=== PATIENT | female | born 1945 | race Caucasian/White ===

== ENCOUNTER → 2020-03-29 12:54 | Outpatient (BNVA) | payer MEDICARE, SELFPAY | PROVIDERS: PCP Internal Medicine; Visit Provider Surgery Vascular Surgery | DX: I83.12 Varicose veins of left lower extremity with inflammation (principal) | CPT/HCPCS: 99212 ==

== ENCOUNTER 2020-03-31 07:55 | Outpatient (REF) | payer MEDICARE, SELFPAY ==
--- NOTE | 2020-03-31 07:58 | US_ITS ---
EXAMINATION: RIGHT and LEFT LOWER EXTREMITY VENOUS ULTRASOUND (Reflux Exam) CLINICAL INDICATION: leg pain and varicose veins. COMPARISON: Previous exam August 2018 and September 2018 TECHNIQUE: Color flow triplex imaging and compression Doppler was performed to evaluate both the deep and the superficial systems bilaterally. To evaluate the superficial system, the examination was performed in the upright position. Color-flow Doppler ultrasound and compression ultrasound were utilized. In addition, maneuvers were utilized to demonstrate reflux. FINDINGS: 1. DEEP VENOUS ULTRASOUND OF THE RIGHT LOWER EXTREMITY: Respiratory variation, normal compression and augmented flow are noted in the right common femoral vein as well as the right popliteal vein and there is no evidence of deep venous thrombosis at these locations. There is no evidence of reflux in the deep system in either the common femoral vein or the popliteal vein. There is no evidence of a Mcdaniels's cyst. 2. SUPERFICIAL ULTRASOUND WITH DOPPLER OF RIGHT LOWER EXTREMITY: The right great saphenous vein at the saphenofemoral junction measures 12 mm, at the mid thigh 4 mm, qbmpu-kyc-prbi . mm, hlfzs-hex-hqvy 5 mm, at mid calf 2 mm and at the ankle measures 1 mm. There is no reflux demonstrated in the right great saphenous vein. The right small saphenous vein measures 3-4 mm and demonstrates 2.9 cm reflux at the distal calf.. There is a lateral accessory greater saphenous vein that measures 3 to 4 mm and does not demonstrate reflux. There are varicosities in the proximal calf that measures 3 mm and demonstrates 3 seconds reflux. There is a varicosity in the proximal calf that measures 4 mm and does not demonstrate reflux. 3. DEEP VENOUS ULTRASOUND OF THE LEFT LOWER EXTREMITY: Respiratory variation, normal compression and augmented flow are noted in the left common femoral vein as well as the left popliteal vein and there is no evidence of deep venous thrombosis at these locations. There is no evidence of reflux in the deep system in either the common femoral vein or the popliteal vein. . There is no evidence of a Mcdaniels's cyst. 4. SUPERFICIAL ULTRASOUND WITH DOPPLER OF LEFT LOWER EXTREMITY: Left great saphenous vein at the saphenofemoral junction measures 11 mm, at the mid thigh not seen, yctez-jhj-zdkm mm, ivleo-noj-azmy 3 mm, at mid calf 5 mm and at the ankle measures 4 mm. There is left greater saphenous vein reflux measuring 0.9 seconds at the saphenofemoral junction, 1 seconds above the knee, 2.4 seconds below the knee and 2.6 seconds in the mid calf. The left small saphenous vein measures 2-5 mm and and demonstrates 2.5 second reflux in the mid calf. There is a medial accessory greater saphenous vein that measures 7 mm and does not demonstrate reflux. There is a impregnating helper in the distal calf that measures 2 mm and does not demonstrate reflux. There is a impregnating helper in the proximal calf that measures 2 mm and demonstrates 2.9 seconds reflux. There are 2 varicosities in the mid calf arising from the lesser saphenous vein that measure 5 mm and demonstrates 3 seconds reflux and 4 mm and demonstrates 2.9 seconds reflux . There are 2 varicosities in the proximal thigh that measures 6 mm and demonstrate 2.4 and 2.5 seconds reflux and arise from the accessory saphenous vein. US/US venous duplex LE BI IMPRESSION: 1. No evidence of reflux or thrombus in the common femoral veins or popliteal veins bilaterally. 2. Right: No right greater saphenous vein reflux. 2.9 seconds reflux in the right lesser saphenous vein. Small varicosities in the calf that demonstrate reflux. 3. Left: Left greater saphenous vein reflux measuring maximum 2.6 seconds. Left lesser saphenous vein reflux measuring 2.5 seconds. Varicosities with reflux in the calf that arise from the lesser saphenous vein. Varicosities with reflux in the proximal thigh that arise from the accessory greater saphenous vein. Researcher in the calf with reflux.
== END 2020-03-31 07:56 | disposition home or self-care (01) ==
LOC: HO.US 07:55
PROVIDERS: Visit Provider Surgery Vascular Surgery
DX: I83.12 Varicose veins of left lower extremity with inflammation (principal)
CPT/HCPCS: 93970

== ENCOUNTER → 2020-04-20 10:59 | Outpatient (BNVA) | payer MEDICARE, SELFPAY | PROVIDERS: PCP Internal Medicine; Visit Provider Surgery Vascular Surgery | DX: I83.12 Varicose veins of left lower extremity with inflammation (principal) | CPT/HCPCS: 99212 ==

== ENCOUNTER → 2020-05-21 09:47 | Outpatient (REF) | payer MEDICARE, SELFPAY ==
--- NOTE | 2020-05-21 10:00 | ECG_ITS ---
Hook-up date: 2020-05-21 10:42:00 Duration: 47:59:00 Test Indications: PAF Medications: 07073 QRS complexes 1141 Ventricular ectopics which represent 1 % of total QRS comp. 1498 Supraventricular ectopics which represent 1 % of total QRS comp. * Paced QRS complexs which represent % of total QRS comp. VENTRICULAR ECTOPY 1117 Isolated 0 Bigeminal Cycles 10 Couplets 1 Runs 4 Beats in Runs 4 Beats LONGEST at 91 BPM at 18:56:03 2020-05-21 4 Beats FASTEST at 91 BPM at 18:56:03 2020-05-21 SUPRAVENTRICULAR ECTOPY 1347 Isolated 28 Couplets 16 Runs 95 Beats in Runs 14 Beats LONGEST at 103 BPM at 22:07:38 2020-05-21 3 Beats FASTEST at 159 BPM at 08:06:21 2020-05-22 HEART RATES 59 MIN at 20:04:26 2020-05-21 69 AVG 112 MAX at 06:15:53 2020-05-22 LONGEST RR 1.3520 secs at 22:28:11 2020-05-21 S-T LEVELS Channel 1 - 128 mm at 10:42:00 2020-05-21 - 128 mm at 10:42:00 2020-05-21 Channel 2 - 128 mm at 10:42:00 2020-05-21 - 128 mm at 10:42:00 2020-05-21 Channel 3 - 128 mm at 03:00:11 -- - 128 mm at 03:00:11 Basic rhythm Normal sinus rhythm No long pause or profound bradycardia Baseline BBB No sustained Atrial fibrillation Frequent Premature atrial complexes Frequent Premature ventricular complexes Few 3 beats salvos of NSVT Patient did not report any symptoms in the diary Referred By: Chandler Hurt Overread By: MICHAEL MAC MD
== END ==
LOC: HO.CARD 09:47
PROVIDERS: PCP Internal Medicine; Visit Provider Internal Medicine
DX: I48.0 Paroxysmal atrial fibrillation (principal)
CPT/HCPCS: 93225; 93226

== ENCOUNTER → 2020-06-10 12:53 | Outpatient (BNVA) | payer MEDICARE, SELFPAY | PROVIDERS: PCP Internal Medicine; Visit Provider Internal Medicine | DX: I48.0 Paroxysmal atrial fibrillation (principal); I49.3 Ventricular premature depolarization; I10 Essential (primary) hypertension; R21 Rash and other nonspecific skin eruption; Z79.01 Long term (current) use of anticoagulants; Z79.899 Other long term (current) drug therapy | CPT/HCPCS: Q3014 ==

== ENCOUNTER 2020-07-08 12:26 | Outpatient (REF) | payer MEDICARE, SELFPAY ==
[2020-07-08 13:58] LABS: Glucose Urine UA NEG (NEG); Leukocyte Esterase Urine 1+ (NEG); Nitrite Urine POS (NEG); PH 6.5 (5.0-8.0); Urine Blood TRACE (NEG); Urine Ketones NEG (NEG); Urine Protein NEG (NEG-TRACE)
[2020-07-08 13:59] LABS: Appearance Urine HAZY; Color Urine YELLOW
[2020-07-08 14:00] LABS: Hematocrit 45.4 % (37-47); Hemoglobin 14.6 g/dl (12.0-16.0); Mean Corpuscular HGB Conc 32.2 g/dl (31.0-35.0); Mean Corpuscular Hemoglobin 29.8 pg (27.0-33.0); Mean Corpuscular Volume 92.7 fL (80-98); Mean Platelet Volume 11.5 fL (9.4-12.3); Platelet Count 238 X10*3/uL (160-400); Red Cell Distribution Width 13.2 % (11.0-16.0); White Blood Count 6.5 X10*3/uL (4.8-10.8)
[2020-07-08 14:14] LABS: Bacteria Urine 4+ /LPF; RBC Urine 0-2 /HPF (0); Squamous Epithelial Cell Urine 1+ /LPF
[2020-07-08 14:24] LABS: Alanine Aminotransferase 16 U/L (0-31); Albumin Level 4.3 g/dL (3.5-5.0); Alkaline Phosphatase 106 U/L (39-117); Anion Gap 13 (12-20); Aspartate Amino Transferase 19 U/L (5-31); Bilirubin Total 0.7 mg/dL (0.0-1.0); Blood Urea Nitrogen 16 mg/dL (9-16); Carbon Dioxide 28 mmol/L (22-29); Chloride 104 mmol/L (96-108); Cholesterol 179 mg/dL; Estimated Glomerular Filt Rate > 60; Glucose Fasting 97 mg/dL (60-99); HDL Cholesterol 42 mg/dL; LDL Cholesterol Calculated 106 mg/dl; Potassium 4.3 mmol/L (3.3-5.1); Sodium 141 mmol/L (135-145); Total Protein 7.4 g/dL (6.5-8.0); Triglycerides 157 mg/dL
[2020-07-08 14:47] LABS: TSH reflex Free T4 1.86 uIU/mL (0.32-4.0); Vitamin D 25-OH Total 44.9 ng/mL (>30)
== END 2020-07-08 12:27 | disposition home or self-care (01) ==
LOC: HO.HMGCLDS 12:26
PROVIDERS: PCP Internal Medicine; Visit Provider Internal Medicine
DX: I48.0 Paroxysmal atrial fibrillation (principal); I10 Essential (primary) hypertension; I49.3 Ventricular premature depolarization; E03.9 Hypothyroidism, unspecified
CPT/HCPCS: 36415; 80053; 80061; 81001; 82306; 84443; 85027

== ENCOUNTER 2020-07-12 13:09 | Outpatient (REF) | payer MEDICARE, SELFPAY ==
[2020-07-12 14:14] LABS: Glucose Urine UA NEG (NEG); Leukocyte Esterase Urine 1+ (NEG); Nitrite Urine POS (NEG); UACC Culture Trigger YES; Urine Blood TRACE (NEG); Urine Ketones NEG (NEG); Urine Protein NEG (NEG-TRACE)
[2020-07-12 14:16] LABS: Appearance Urine HAZY; Color Urine YELLOW
[2020-07-12 14:25] LABS: RBC Urine 0 /HPF (0); Squamous Epithelial Cell Urine TRACE /LPF
[2020-07-12 14:26] LABS: Bacteria Urine 2+ /LPF; Mucus Urine TRACE /LPF
== END 2020-07-12 13:10 | disposition home or self-care (01) ==
LOC: HO.HMGCLDS 13:09
PROVIDERS: PCP Internal Medicine; Visit Provider Internal Medicine
DX: R82.71 Bacteriuria (principal); I48.0 Paroxysmal atrial fibrillation; I10 Essential (primary) hypertension; I49.3 Ventricular premature depolarization; E03.9 Hypothyroidism, unspecified
CPT/HCPCS: 81001; 81003; 87086; 87088; 87186

== ENCOUNTER 2020-07-29 13:20 | Outpatient (REF) | payer MEDICARE, SELFPAY ==
--- NOTE | ~2020-07-29 | MM_ITS ---
EXAMINATION: MM SCREENING DIGITAL BREAST TOMOSYNTHESIS, BILATERAL CLINICAL INFORMATION: Screening. Asymptomatic. The lifetime risk of breast cancer based on the Tyrer-Cuzick Model is 5.2%. COMPARISON: Mammography: July 24, 2019 and studies dating back to March 12, 2012 TECHNIQUE: Digital breast tomosynthesis is performed in both the craniocaudal and mediolateral oblique views along with computer-aided detection (CAD). Synthesized 2D images are generated from the tomosynthesis. FINDINGS: There are scattered areas of fibroglandular density (ACR BI-RADS breast composition Category b). There are no significant masses, abnormal calcifications, or other abnormalities. MM/MM tomosynthesis screening BI IMPRESSION: There are no significant changes from prior study. ASSESSMENT: BI-RADS 1: Negative RECOMMENDATION: Routine annual mammography screening. This patient's information was entered into a reminder system with a target due date for their next mammogram.
== END 2020-07-29 13:21 | disposition home or self-care (01) ==
LOC: HO.MAMMO 13:20
PROVIDERS: PCP Internal Medicine; Visit Provider Internal Medicine
DX: Z12.31 Encounter for screening mammogram for malignant neoplasm of breast (principal)
CPT/HCPCS: 77063; 77067

== ENCOUNTER → 2020-12-21 09:34 | Outpatient (BNVA) | payer MEDICARE, SELFPAY | PROVIDERS: PCP Internal Medicine; Visit Provider Orthopaedic Surgery | DX: M17.11 Unilateral primary osteoarthritis, right knee (principal) | CPT/HCPCS: 20610; 99212; J1040 ==

== ENCOUNTER 2020-12-24 11:36 | Outpatient (REF) | payer MEDICARE, SELFPAY | END 2020-12-24 11:37 | disposition home or self-care (01) | LOC: HO.LAB 11:36 | PROVIDERS: PCP Internal Medicine; Visit Provider Internal Medicine | DX: Z20.822 Contact with and (suspected) exposure to COVID-19 (principal) | CPT/HCPCS: C9803; U0003; U0005 ==

== ENCOUNTER 2021-04-12 07:00 | Outpatient (RCR) | payer MEDICARE, SELFPAY ==
--- NOTE | 2021-04-07 15:09 | MHC.PT.EP ---
[facility] [place] [facility] [place] [facility] [place] [facility] [address] [place] [address] [phone] F: [phone] F: [phone] F: [phone] F: [phone] Physical Therapy Plan of Care Date of Evaluation: Date of Surgery: Diagnosis: vertigo Assessment: The patient has dizziness with change of position as well as left head and body movement. She had reports of vertigo and atypical nystagmus in right hallpike. Slight upbeating torsional low amplitude nystagmus noted that improved upon completion of CRM. She will return for f/u for BPPV. She is also showing signs of vestibular hypofunction. Frequency and Duration: The patient will be seen 2x/week x 4 weeks. Short Term Goals: 1. The patient to be able to negotiate community obstacles such as curbs, ramps and open spaces without LOB for 100 feet. 2. For the patient to be able to functionally move in all planes and directions without provocation of dizziness to show return to PLOF. Wire Welder Goals: 1. For the patient to be negative for nystagmus or reports of vertigo in all diagnostic positions bilaterally to resolution of BPPV in 4 weeks. 2. For the patient to be able to functionally move in all planes and directions without provocation of dizziness to show return to PLOF. 3.For the patient to be educated on symptoms and indications to return to therapy when needed in 4 weeks. Treatment Plan: Modalities to reduce pain, spasms and effusion. Manual therapy to restore motion and function. Therapeutic exercise to improve strength and flexibility. Neuromuscular re-education for posture and balance. Therapeutic activities to return to functional activities of daily living. Electronically signed by: Florinda Davis PT DPT Please sign and return to therapist. Thank you for your referral.
== END 2021-05-06 08:00 | disposition home or self-care (01) ==
LOC: HO.PT 07:00
PROVIDERS: PCP Internal Medicine; Visit Provider Nurse Practitioner Family
DX: R42 Dizziness and giddiness (principal)
CPT/HCPCS: 95992; 97112; 97162

== ENCOUNTER → 2021-06-09 12:16 | Outpatient (BNVA) | payer MEDICARE, SELFPAY | PROVIDERS: PCP Internal Medicine; Referring Provider Internal Medicine; Visit Provider Internal Medicine | DX: I48.0 Paroxysmal atrial fibrillation (principal); I49.3 Ventricular premature depolarization; I10 Essential (primary) hypertension; R21 Rash and other nonspecific skin eruption; Z79.01 Long term (current) use of anticoagulants; Z79.899 Other long term (current) drug therapy | CPT/HCPCS: 93005; 99212 ==

== ENCOUNTER 2021-07-11 11:57 | Outpatient (REF) | payer MEDICARE, SELFPAY ==
[2021-07-11 14:00] LABS: Hematocrit 46.2 % (37.0-47.0); Hemoglobin 14.8 g/dl (12.0-16.0); Mean Corpuscular Hemoglobin 29.8 pg (27.0-33.0); Mean Corpuscular Volume 93.1 fL (80.0-98.0); Mean Platelet Volume 11.9 fL (9.4-12.3); Platelet Count 237 X10*3/uL (160-400); Red Blood Count 4.96 X10*6/uL (4.20-5.50); Red Cell Distribution Width 13.4 % (11.0-16.0); White Blood Count 6.6 X10*3/uL (4.8-10.8)
[2021-07-11 14:03] LABS: Appearance Urine CLEAR; Color Urine YELLOW; Glucose Urine UA NEG (NEG); Leukocyte Esterase Urine NEG (NEG); Nitrite Urine NEG (NEG); Specific Gravity - Urine 1.015 (1.005-1.025); Urine Blood NEG (NEG); Urine Ketones 5 MG/DL (NEG); Urine Protein NEG (NEG-TRACE)
[2021-07-11 14:17] LABS: Alanine Aminotransferase 18 U/L (0-31); Albumin Level 4.2 g/dL (3.5-5.0); Alkaline Phosphatase 96 U/L (39-117); Anion Gap 12 (12-20); Aspartate Amino Transferase 20 U/L (5-31); Bilirubin Total 0.7 mg/dL (0.0-1.0); Blood Urea Nitrogen 15 mg/dL (9-16); Carbon Dioxide 27 mmol/L (22-29); Chloride 106 mmol/L (96-108); Cholesterol 176 mg/dL; Estimated Glomerular Filt Rate > 60; Glucose Fasting 98 mg/dL (60-99); HDL Cholesterol 44 mg/dL; LDL Cholesterol Calculated 107 mg/dl; Sodium 141 mmol/L (135-145); Total Protein 7.1 g/dL (6.5-8.0); Triglycerides 129 mg/dL
[2021-07-11 14:24] LABS: RBC Urine 0 /HPF (0); Squamous Epithelial Cell Urine TRACE /LPF; WBC Urine 0-2 /HPF (0-4)
[2021-07-11 14:30] LABS: TSH reflex Free T4 1.54 uIU/mL (0.32-4.0)
== END 2021-07-11 11:58 | disposition home or self-care (01) ==
LOC: HO.HMGCLDS 11:57
PROVIDERS: Visit Provider Internal Medicine
DX: Z00.00 Encounter for general adult medical examination without abnormal findings (principal); I48.0 Paroxysmal atrial fibrillation; I10 Essential (primary) hypertension
CPT/HCPCS: 36415; 80053; 80061; 81001; 84443; 85027

== ENCOUNTER 2021-08-02 10:15 | Outpatient (REF) | payer MEDICARE, SELFPAY ==
--- NOTE | ~2021-08-02 | MM_ITS ---
EXAMINATION: MM SCREENING DIGITAL BREAST TOMOSYNTHESIS, BILATERAL CLINICAL INFORMATION: Screening. Asymptomatic. The lifetime risk of breast cancer based on the Tyrer-Cuzick Model is 3%. COMPARISON: Mammography: 07/29/2020, 07/24/2019, 07/16/2018 TECHNIQUE: Digital breast tomosynthesis is performed in both the craniocaudal and mediolateral oblique views along with computer-aided detection (CAD). Synthesized 2D images are generated from the tomosynthesis. FINDINGS: There are scattered areas of fibroglandular density (ACR BI-RADS breast composition Category b). There are no significant masses, abnormal calcifications, or other abnormalities. Parenchymal pattern is similar to prior studies. There is no developing density or architectural abnormality. The axilla and skin contours are unremarkable. No significant changes. MM/MM tomosynthesis screening BI IMPRESSION: No mammographic evidence of malignancy. ASSESSMENT: BI-RADS 1: Negative RECOMMENDATION: Routine annual mammography screening. This patient's information was entered into a reminder system with a target due date for their next mammogram.
== END 2021-08-02 10:16 | disposition home or self-care (01) ==
LOC: HO.MAMMO 10:15
PROVIDERS: PCP Internal Medicine; Visit Provider Internal Medicine
DX: Z12.31 Encounter for screening mammogram for malignant neoplasm of breast (principal)
CPT/HCPCS: 77063; 77067

== ENCOUNTER → 2022-06-12 11:01 | Outpatient (BNVA) | payer MEDICARE, SELFPAY | PROVIDERS: PCP Internal Medicine; Referring Provider Internal Medicine; Visit Provider Internal Medicine | DX: I48.0 Paroxysmal atrial fibrillation (principal); I10 Essential (primary) hypertension; Z79.01 Long term (current) use of anticoagulants; Z79.899 Other long term (current) drug therapy | CPT/HCPCS: 93005; 99212 ==

== ENCOUNTER 2022-07-18 09:34 | Outpatient (REF) | payer MEDICARE, SELFPAY ==
[2022-07-18 11:08] LABS: MANUAL DIFF FLAG NO
[2022-07-18 11:10] LABS: Basophils Percent Auto 0.7 % (0-2); Eosinophils Absolute Auto 0.1 X10*3/uL (0.0-0.4); Hematocrit 45.9 % (37.0-47.0); Hemoglobin 14.9 g/dl (12.0-16.0); Imm Gran Abs Auto 0.03 X10*3/uL (0.00-0.03); Imm Gran Pct Auto 0.5 % (0.0-0.4); Lymphocytes Absolute Auto 1.5 X10*3/uL (1.2-4.9); Lymphocytes Percent Auto 24.3 % (20-40); Mean Corpuscular HGB Conc 32.5 g/dl (31.0-35.0); Mean Corpuscular Hemoglobin 29.7 pg (27.0-33.0); Mean Corpuscular Volume 91.4 fL (80.0-98.0); Mean Platelet Volume 11.4 fL (9.4-12.3); Monocytes Absolute Auto 0.6 X10*3/uL (0.1-1.2); Monocytes Percent Auto 10.5 % (2-11); Neutrophils Absolute Auto 3.9 x10*3/uL (2.0-8.3); Platelet Count 244 X10*3/uL (160-400); Red Blood Count 5.02 X10*6/uL (4.20-5.50); Red Cell Distribution Width 13.4 % (11.0-16.0); White Blood Count 6.1 X10*3/uL (4.8-10.8)
[2022-07-18 11:30] LABS: Alanine Aminotransferase 17 U/L (0-31); Albumin Level 4.3 g/dL (3.5-5.0); Alkaline Phosphatase 92 U/L (39-117); Anion Gap 13 (12-20); Aspartate Amino Transferase 19 U/L (5-31); Bilirubin Total 0.9 mg/dL (0.0-1.0); Blood Urea Nitrogen 16 mg/dL (9-16); Calcium 9.7 mg/dL (8.4-10.2); Carbon Dioxide 29 mmol/L (22-29); Chloride 105 mmol/L (96-108); Cholesterol 177 mg/dL; Estimated Glomerular Filt Rate > 60; Glucose Fasting 113 mg/dL (60-99); HDL Cholesterol 44 mg/dL; LDL Cholesterol Calculated 111 mg/dl; Potassium 4.3 mmol/L (3.3-5.1); Sodium 143 mmol/L (135-145); Triglycerides 112 mg/dL
[2022-07-18 11:46] LABS: TSH reflex Free T4 1.95 uIU/mL (0.32-4.0)
[2022-07-18 12:11] LABS: Vitamin D 25-OH Total 53.1 ng/mL (>30)
== END 2022-07-18 09:35 | disposition home or self-care (01) ==
LOC: HO.HMGCLDS 09:34
PROVIDERS: PCP Internal Medicine; Visit Provider Internal Medicine
DX: Z00.00 Encounter for general adult medical examination without abnormal findings (principal); E55.9 Vitamin D deficiency, unspecified; I10 Essential (primary) hypertension; I48.0 Paroxysmal atrial fibrillation; Z78.0 Asymptomatic menopausal state
CPT/HCPCS: 36415; 80053; 80061; 82306; 84443; 85025

== ENCOUNTER 2022-08-15 09:42 | Outpatient (REF) | payer MEDICARE, SELFPAY ==
--- NOTE | ~2022-08-15 | MM_ITS ---
EXAMINATION: MM SCREENING DIGITAL BREAST TOMOSYNTHESIS, BILATERAL CLINICAL INFORMATION: Screening. Asymptomatic. The lifetime risk of breast cancer based on the Tyrer-Cuzick Model is 2%. COMPARISON: Mammography: 08/02/2021, 07/29/2020, 07/24/2019 TECHNIQUE: Digital breast tomosynthesis is performed in both the craniocaudal and mediolateral oblique views along with computer-aided detection (CAD). Synthesized 2D images are generated from the tomosynthesis. FINDINGS: There are scattered areas of fibroglandular density (ACR BI-RADS breast composition Category b). There are no significant masses, abnormal calcifications, or other abnormalities. No architectural abnormality or developing density or significant change from prior studies. The axilla and skin contours are unremarkable. MM/MM tomosynthesis screening BI IMPRESSION: No mammographic evidence of malignancy. ASSESSMENT: BI-RADS 1: Negative RECOMMENDATION: Routine annual mammography screening. This patient's information was entered into a reminder system with a target due date for their next mammogram.
--- NOTE | ~2022-08-15 | MM_ITS ---
EXAMINATION: BONE DENSITOMETRY CLINICAL INDICATION: Encounter for general adult medical examination without abnormal findings. COMPARISON: Baseline BD dated 05/22/2018. TECHNIQUE: Using a [employer] DXA System (software version: 13.1) manufactured by [employer], dual-energy x-ray absorptiometry was performed of the lumbar spine and left hip. The images are of good technical quality. Summary results are attached. FINDINGS: AP SPINE L1-L4: Current: BMD 1.233 g/cm2, Z-score 2.0, T-score 0.4, normal, 1.1% increase from baseline (<5% change is not significant). Baseline: BMD 1.219 g/cm2. LEFT FEMUR, NECK: Current: BMD 0.714 g/cm2, Z-score -0.4, T-score -2.3, osteopenia. Baseline: BMD 0.748 g/cm2. LEFT FEMUR, TOTAL: Current: BMD 0.816 g/cm2, Z-score 0.2, T-score -1.5, osteopenia, 8.8% decrease from baseline (<5% change is not significant). Baseline: BMD 0.895 g/cm2. IDENTIFIED RISK FACTORS: Early menopause, secondary osteoporosis, rheumatoid arthritis, height loss, hysterectomy. HISTORY OF FRACTURE: None listed. MEDICATIONS: Calcium supplements or multivitamin, vitamin D. MM/XR DEXA axial skeleton IMPRESSION: 1. DIAGNOSIS: Osteopenia based on the lowest T-score value of -2.3 in the femoral neck applying World Health Organization criteria. 2. 10-YEAR FRACTURE RISK PREDICTION, FRAX: Major osteoporotic fracture (clinical spine, forearm, hip or shoulder) 22.0%. Hip fracture 7.7%. 3. Treatment Recommendations: NOF guidelines recommend consideration for treatment in postmenopausal women and men age 50 and older presenting with the following: -A hip or vertebral (clinical or morphometric) fracture. -T-score less than or equal to -2.5 at the femoral neck or spine after appropriate evaluation to exclude secondary causes. -Low bone mass at the hip or spine and a 10-year fracture probability by FRAX of greater than or equal to 3% for hip fracture or greater than or equal to 20% for major osteoporotic fracture based on the [place] adapted WHO algorithm. 4. Other Recommendations: All treatment decisions require clinical judgment and consideration of individual patient factors, including patient preferences, comorbidities, previous drug use, risk factors not captured in the FRAX model (e.g. frailty, falls, vitamin D deficiency, increased bone turnover, interval significant decline in bone density) and possible under or overestimation of fracture risk by FRAX. Additional medical evaluation for secondary cause of low bone mineral density may be appropriate. FUTURE SCAN RECOMMENDATION: People with diagnosed cases of osteoporosis or at high risk for fracture should have regular bone mineral density tests. For patients eligible for Medicare, routine testing is allowed once every 2 years. The testing frequency can be increased to one year for patients who have rapidly progressing disease, those who are receiving or discontinuing medical therapy to restore bone mass, or have additional risk factors.
== END 2022-08-15 09:43 | disposition home or self-care (01) ==
LOC: HO.MAMMO 09:42
PROVIDERS: PCP Internal Medicine; Visit Provider Internal Medicine
DX: Z12.31 Encounter for screening mammogram for malignant neoplasm of breast (principal); Z13.820 Encounter for screening for osteoporosis; Z78.0 Asymptomatic menopausal state
CPT/HCPCS: 77063; 77067; 77080

== ENCOUNTER → 2022-12-26 13:59 | Outpatient (BNV) | payer MEDICARE, SELFPAY | PROVIDERS: PCP Internal Medicine; Visit Provider Internal Medicine | DX: I47.1 Supraventricular tachycardia (principal) | CPT/HCPCS: 93272 ==

== ENCOUNTER → 2022-12-26 14:09 | Outpatient (REF) | payer MEDICARE, SELFPAY ==
--- NOTE | 2022-12-26 13:59 | HM_ITS ---
* Total monitoring time about 30 days. * Underlying rhythm is sinus. Average ventricular rate 57/Min. Range 40 to 120/Min. * About 78% of the time, rate less than 60/Min. * Occasional supraventricular ectopy with a burden of 1.5%. * Occasional ventricular ectopy with a burden of 1.8%. * No evidence of atrial fibrillation. * There is evidence of intermittent right bundle-branch block morphology. * Symptom button activated 55 times; symptom reported once-tiredness. Correlates with PACs from a PVCs, sinus bradycardia. MTDD
== END ==
LOC: HO.CARD 14:09
PROVIDERS: PCP Internal Medicine; Visit Provider Nurse Practitioner
DX: I48.0 Paroxysmal atrial fibrillation (principal)
CPT/HCPCS: 93270

== ENCOUNTER 2023-02-08 14:24 | Outpatient (AMB) | payer MEDICARE, SELFPAY ==
--- NOTE | 2023-02-08 14:46 | MHC.OFFVIS ---
Intake Vital Signs 02/08/23 14:47 Height 5 ft 4 in Weight 147 lb 11.355 oz BMI 25.4 BP 158/80 H Blood Pressure Location Lt brachial Position Sitting Pulse 52 Intake Visit Reasons: FOLLOW UP AFTER TESTING Intake Note: follow up testing Dye Tub Tender Required: No Accompanied by: Self / Same As Patient Allergies omeprazole [From PRILOSEC] Allergy (Unknown, Verified 02/08/23 14:48) NAUSEA quinidine [QUINIDINE] Allergy (Unknown, Verified 02/08/23 14:48) NAUSEA Medication List - Last Reconciled 02/08/23 by Chandler Hurt MD apixaban (Eliquis) 5 mg PO BID atenolol 100 mg PO DAILY loapudw-hlbnadeqf-zxxdjs-zinc tabs PO cholecalciferol (vitamin D3) 25 mcg PO DAILY irbesartan-hydrochlorothiazide 300-12.5 mg 1 tab PO DAILY levothyroxine 50 mcg PO DAILY HPI HPI Comments History of Present Illness Details Lola returns for follow up regarding atrial fibrillation and hypertension. In the past, she was having side effects from very high dose of beta-blockers. Was having some skin issues. Then switched to diltiazem. There were some side effects from this as well and more recently, she has been taking atenolol. She still feels some fluttering off and on. However, in the recent 30 day monitor there is no evidence of atrial fibrillation at all. Could be just from supraventricular ventricular ectopy. Otherwise, she is feeling fine. Today's blood pressure is on the higher side but at home, those readings are much lower. [facility] Medical History (Updated 07/18/22 @ 09:23 by Nany Antonio MD) Asymptomatic bacteriuria Annual physical exam Skin rash Essential hypertension Paroxysmal atrial fibrillation Internal hemorrhoid Tubular adenoma Hypothyroidism HTN (hypertension) Surgical History Hx of arthroscopic knee surgery Status post endovenous radiofrequency ablation (RFA) of saphenous vein History of radiofrequency ablation (RFA) procedure for cardiac arrhythmia Family History Mother No problems noted. Father No problems noted. Daughter No problems noted. Son No problems noted. Son No problems noted. Social History Housing: House Alcohol intake: never Patient Tobacco Use Status: Never used Tobacco e-Cigarette/Vaping Use: Never Used Current occupational status: retired Review of Systems Const Denies weakness ENT Denies dizziness Card Denies chest pain, Denies chest pain with activity, Denies syncope, Denies rapid heart rate, Denies pedal edema, Denies edema, Denies leg edema, Denies lightheadedness, Denies palpitations, Denies dyspnea, Denies dyspnea on exertion and Denies orthopnea Resp Denies cough, Denies dyspnea and Denies dyspnea on exertion GI Denies hematochezia and Denies change in stool character Musc Denies abnormal gait, Denies muscle cramps, Denies muscle weakness, Denies numbness, Denies radiating pain into limb and Denies tingling Neuro Denies abnormal gait, Denies dizziness, Denies syncope, Denies numbness, Denies tingling and Denies weakness Endo Denies palpitations Physical Exam Vital Signs: Last Vital Signs Pulse 52 02/08/23 14:47 BP 158/80 H 02/08/23 14:47 BMI result Body Mass Index 25.4 Const General: comfortable and no acute distress Orientation/consciousness: patient oriented x3 HEENT Other: Unremarkable Head: Yes normal to inspection Neck Neck: Yes normal visual inspection Chest Chest palpation & inspection: normal inspection of the chest Resp Auscultation: clear to auscultation bilaterally Cardio Palpation: normal PMI Heart sounds: S1 normal heart sound present, S2 normal heart sound present, no gallops, no murmurs and no rubs GI Palpation (GI): Soft to palpation Back/Spine/Pelvis Other: unremarkable Skin General skin exam: no rashes or lesions noted Neuro General: patient oriented x3 Extrem General: Yes normal to inspection Psych Mental Status: mental status grossly normal Assessment & Plan Assessment & Plan (1) Paroxysmal atrial fibrillation: Comment: s/p 3 ablations, f/u with [facility] [place] [facility] Code(s): I48.0 - Paroxysmal atrial fibrillation Plan: In the recent 30 day monitor, there is no evidence of atrial fibrillation. Occasional supraventricular/ventricular ectopy with intermittent right bundle-branch block. She may remain on atenolol. No further changes. Continue anticoagulation. (2) Essential hypertension: Code(s): I10 - Essential (primary) hypertension Plan: Continue Irbesartan/HCTZ. Home blood pressures are completely normal. Renal function/potassium within normal limits. Coding Level of Care Code Est Pt Level 3 (61210) Diagnoses Paroxysmal atrial fibrillation I48.0 Essential hypertension I10
[2023-02-08 14:47] VITALS: BP 158/80; PULSE 52; BMI 25.4
== END 2023-02-08 15:14 | disposition home or self-care (01) ==
PROVIDERS: PCP Internal Medicine; Visit Provider Internal Medicine
DX: I48.0 Paroxysmal atrial fibrillation (principal); I10 Essential (primary) hypertension
CPT/HCPCS: 99213

== ENCOUNTER → 2023-02-08 14:24 | Outpatient (BNVA) | payer MEDICARE, SELFPAY | PROVIDERS: PCP Internal Medicine; Visit Provider Internal Medicine | DX: I48.0 Paroxysmal atrial fibrillation (principal); I10 Essential (primary) hypertension; Z79.01 Long term (current) use of anticoagulants; Z79.899 Other long term (current) drug therapy | CPT/HCPCS: 99212 ==

== ENCOUNTER 2023-06-20 06:26 | Day surgery (SDC) | payer MEDICARE, SELFPAY ==
[2023-03-15 13:57] VITALS: BMI 25.4
--- NOTE | 2023-06-19 08:27 | P.CONAN_ITS ---
Documented by User: Holli Caraballo NP 06/19/23 08:28 HPI - Anesthesia Eval Consult details Narrative: 77yo F for Colonoscopy Eliquis for afib Follows [facility] [place] cardiology. Stable at last office visit 02/2023 [facility] Active Problems Active Problems: All Active Problems (Updated 07/18/22 @ 09:23 by Nany Antonio MD) Postmenopausal (Acute) Vitamin D deficiency (Acute) Vertigo (Acute) Primary osteoarthritis of right knee (Acute) PVC (premature ventricular contraction) (Acute) Varicose veins of left lower extremity with inflammation (Acute) Asymptomatic bacteriuria (Acute) Annual physical exam (Acute) Skin rash (Acute) Essential hypertension (Acute) Paroxysmal atrial fibrillation (Acute) Past Medical History Medical History (Updated 07/18/22 @ 09:23 by Nany Antonio MD) Asymptomatic bacteriuria Annual physical exam Skin rash Essential hypertension Paroxysmal atrial fibrillation Internal hemorrhoid Tubular adenoma Hypothyroidism HTN (hypertension) Family History Family History Mother No problems noted. Father No problems noted. Daughter No problems noted. Son No problems noted. Son No problems noted. Surgical History Surgical History (Updated 03/15/23 @ 13:48 by Christie Cassidy RN) History of Hx of hysterectomy Hx of appendectomy H/O colonoscopy Hx of arthroscopic knee surgery Status post endovenous radiofrequency ablation (RFA) of saphenous vein History of radiofrequency ablation (RFA) procedure for cardiac arrhythmia Social History Social History Housing: House Alcohol intake: never Patient Tobacco Use Status: Never used Tobacco e-Cigarette/Vaping Use: Never Used Use of substances other than those prescribed or required for medical reasons: No Are you DNR?: No Advance Directives: No Advance Directives Information Provided: Yes Current occupational status: retired Meds Allergies Allergy/AdvReac Type Severity Reaction Status Date / Time omeprazole [From PRILOSEC] Allergy Unknown NAUSEA Verified 02/08/23 14:48 quinidine [QUINIDINE] Allergy Unknown NAUSEA Verified 02/08/23 14:48 Home Medications Medication Instructions Recorded Confirmed Last Taken Type eyafavw-ccjcvfiux-teckre-zinc 1 tab PO DAILY 04/20/20 06/20/23 Unknown History tablet cholecalciferol (vitamin D3) 25 25 mcg PO DAILY 06/12/22 03/15/23 Unknown History mcg (1,000 unit) capsule Exam Height,Weight and Vital Signs: Height 5 ft 4 in Weight 67.132 kg Narrative Narrative: Holter * Total monitoring time about 30 days. * Underlying rhythm is sinus. Average ventricular rate 57/Min. Range 40 to 120/Min. * About 78% of the time, rate less than 60/Min. * Occasional supraventricular ectopy with a burden of 1.5%. * Occasional ventricular ectopy with a burden of 1.8%. * No evidence of atrial fibrillation. * There is evidence of intermittent right bundle-branch block morphology. * Symptom button activated 55 times; symptom reported once-tiredness. Correlates with PACs from a PVCs, sinus bradycardia. Assessment and Plan Assessment Anesthesia Assessment: Chart Reviewed Documented by User: Senthil Vargas MD 06/20/23 07:54 PMFSH Past Medical History Medical History (Updated 07/18/22 @ 09:23 by Nany Antonio MD) Asymptomatic bacteriuria Annual physical exam Skin rash Essential hypertension Paroxysmal atrial fibrillation Internal hemorrhoid Tubular adenoma Hypothyroidism HTN (hypertension) Family History Family History Mother No problems noted. Father No problems noted. Daughter No problems noted. Son No problems noted. Son No problems noted. Family history of problems with anesthesia: No Surgical History Surgical History (Updated 03/15/23 @ 13:48 by Christie Cassidy RN) History of Hx of hysterectomy Hx of appendectomy H/O colonoscopy Hx of arthroscopic knee surgery Status post endovenous radiofrequency ablation (RFA) of saphenous vein History of radiofrequency ablation (RFA) procedure for cardiac arrhythmia History of Problems with Anesthesia: No Social History Social History Housing: House Alcohol intake: never Patient Tobacco Use Status: Never used Tobacco e-Cigarette/Vaping Use: Never Used Use of substances other than those prescribed or required for medical reasons: No Are you DNR?: No Advance Directives: No Advance Directives Information Provided: Yes Current occupational status: retired Meds Allergies Allergy/AdvReac Type Severity Reaction Status Date / Time omeprazole [From PRILOSEC] Allergy Unknown NAUSEA Verified 02/08/23 14:48 quinidine [QUINIDINE] Allergy Unknown NAUSEA Verified 02/08/23 14:48 Home Medications Medication Instructions Recorded Confirmed Last Taken Type bpbemmy-aeeviampb-uooubq-zinc 1 tab PO DAILY 04/20/20 06/20/23 Unknown History tablet cholecalciferol (vitamin D3) 25 25 mcg PO DAILY 06/12/22 03/15/23 Unknown History mcg (1,000 unit) capsule Exam Airway Mallampati Class: II TM Dist: >3cm Neck ROM: Full Loose/Missing/Broken Teeth: No Heart: ok Lungs: ok Assessment and Plan Assessment Anesthesia Assessment: Anesthesia Plan Discussed Final Anesthetic Review Family History of Problems with Anesthesia: No History of Problems with Anesthesia: No NPO: Yes ASA Class: II and III Final Preanesthetic Review: No Changes in Pt Med Stat, Meds/Allgs Chart Reviewed, Consent Obtained/Reviewed and Anes Risks/Benef Reviewed Patient Risk: Intermediate Procedure Risk: Low Anesthetic Plan Anesthetic Plan: MAC: and Agree w/ Assess. and Plan Disposition: Standard PACU
[2023-06-20 06:43] VITALS: BMI 24.2
[2023-06-20 06:46] VITALS: BP 157/59; PULSE 55; RESP 18; TEMP 36.2; O2SAT 100; BMI 24.2
[2023-06-20] MEDS: Lactated Ringers 1,000 ML 100 ML IVCONT (07:18)
[2023-06-20 08:34] VITALS: BP 107/36; PULSE 54; RESP 18; TEMP 36.1; O2SAT 97
--- NOTE | 2023-06-20 08:35 | P.BOP_ITS ---
Brief Operative Note Date of Service: 06/20/23 Pre-op diagnosis: Screening Post-op diagnosis: other (Polyps) Procedure: Colonoscopy to the cecum with bx/removal of polyps Surgeon: Lamin Louise MD Anesthesia: MAC Was an Oil Burner Technician used for this Procedure?: No Estimated blood loss (mL): 2.0 Pathology: other (A. Ascending colon polyps) Condition: stable Disposition: PACU
[2023-06-20 08:39] VITALS: BP 112/43; PULSE 64; RESP 16; O2SAT 97
[2023-06-20 08:50] VITALS: BP 146/49; PULSE 63; RESP 16; O2SAT 100
--- NOTE | 2023-06-20 08:58 | OP_ITS ---
DATE OF SERVICE: 06/20/2023 SURGEON: Lamin Louise MD INDICATIONS: The patient presents for evaluation of colorectal cancer screening and prior history of a tubular adenoma of the colon. Full consent has been obtained from her for this, including risks of bleeding and perforation. PREOPERATIVE DIAGNOSIS: Colorectal cancer screening and personal history of tubular adenoma of the colon. POSTOPERATIVE DIAGNOSIS: Colorectal cancer screening and personal history of tubular adenoma of the colon, small colon polyps, diverticulosis, and internal hemorrhoids. PROCEDURE PERFORMED: Colonoscopy to the cecum with biopsy and removal of polyps. ESTIMATED BLOOD LOSS: COMPLICATIONS: ANESTHESIA: Medication Used: Monitored anesthesia care. ASSISTANTS: SPECIMENS: DESCRIPTION OF PROCEDURE: The patient was placed in the left lateral decubitus position. The digital rectal exam revealed external hemorrhoidal tissue. The Olympus video pediatric colonoscope was entered into the rectum and advanced easily to the cecum. Once in the cecum, I did identify a normal-appearing cecal pouch with appendiceal orifice and a normal-appearing ileocecal valve. After irrigation and suctioning, I was able to obtain a good visualization of the entire cecum. The scope was then slowly withdrawn, assessing all mucosal surfaces carefully. For the most part, preparation was very good throughout the colon, although in the sigmoid, there were some areas of liquid and semi-solid stool that required irrigation and suctioning. In the proximal ascending colon on a fold were two less than 5 mm polyps, which were each biopsied and completely removed and placed in the same container. I did not visualize any other polyps, colitis, nor angiodysplasia. There was a mild amount of sigmoid diverticulosis. In the rectum, scope was retroflexed, visualizing internal hemorrhoids, but no other pathology. The rectal mucosa appeared normal. The scope was straightened and withdrawn from the patient. She tolerated the procedure well and was returned to the recovery area in stable condition. IMPRESSION: 1. Small colon polyps. 2. Diverticulosis. 3. Internal and external hemorrhoids. PLAN: The results of biopsy will be checked. Given these minimal findings and her age, I do not think she would need any further screening colonoscopies. She was advised to resume her Eliquis by tomorrow. She was advised not to use any aspirin or NSAIDs for at least 1 week, but preferably long-term since she is on the Eliquis. This has been discussed with her . MD YOVANI Mansfield/WHITNEY / [id number]
[2023-06-20 09:05] VITALS: BP 141/53; PULSE 60; RESP 16; TEMP 36.2; O2SAT 100
== END 2023-06-20 09:28 | disposition home or self-care (01) ==
PROVIDERS: PCP Internal Medicine; Visit Provider Internal Medicine
PROC: 0DJD8ZZ Inspection of Lower Intestinal Tract, Via Natural or Artificial Opening Endoscopic (ICD-10-PCS; CPT 45378; principal; 2023-06-20 07:30)
DX: Z12.11 Encounter for screening for malignant neoplasm of colon (principal); D12.2 Benign neoplasm of ascending colon; K57.30 Diverticulosis of large intestine without perforation or abscess without bleeding; K64.8 Other hemorrhoids; Z86.010 Personal history of colon polyps; I48.0 Paroxysmal atrial fibrillation; I10 Essential (primary) hypertension; E55.9 Vitamin D deficiency, unspecified; Z79.01 Long term (current) use of anticoagulants; Z79.899 Other long term (current) drug therapy
CPT/HCPCS: 45380; 88305; J2704

== ENCOUNTER 2023-07-18 09:26 | Outpatient (REF) | payer MEDICARE, SELFPAY ==
[2023-07-18 11:27] LABS: MANUAL DIFF FLAG NO
[2023-07-18 11:43] LABS: Basophils Percent Auto 0.6 % (0-2); Eosinophils Absolute Auto 0.1 X10*3/uL (0.0-0.4); Eosinophils Percent Auto 1.8 % (0-4); Hematocrit 45.2 % (37.0-47.0); Hemoglobin 14.6 g/dl (12.0-16.0); Imm Gran Abs Auto 0.03 X10*3/uL (0.00-0.03); Imm Gran Pct Auto 0.6 % (0.0-0.4); Lymphocytes Absolute Auto 1.4 X10*3/uL (1.2-4.9); Lymphocytes Percent Auto 24.8 % (20-40); Mean Corpuscular HGB Conc 32.3 g/dl (31.0-35.0); Mean Platelet Volume 11.9 fL (9.4-12.3); Monocytes Absolute Auto 0.5 X10*3/uL (0.1-1.2); Monocytes Percent Auto 9.7 % (2-11); Neutrophils Absolute Auto 3.4 x10*3/uL (2.0-8.3); Neutrophils Percent Auto 62.5 % (45-73); Platelet Count 175 X10*3/uL (160-400); Red Blood Count 4.86 X10*6/uL (4.20-5.50); Red Cell Distribution Width 13.3 % (11.0-16.0); White Blood Count 5.4 X10*3/uL (4.8-10.8)
[2023-07-18 12:30] LABS: Alanine Aminotransferase 14 U/L (0-31); Albumin Level 3.9 g/dL (3.5-5.0); Alkaline Phosphatase 83 U/L (39-117); Anion Gap 12 (12-20); Aspartate Amino Transferase 20 U/L (5-31); Bilirubin Total 0.7 mg/dL (0.0-1.0); Blood Urea Nitrogen 15 mg/dL (9-16); Calcium 9.7 mg/dL (8.4-10.2); Carbon Dioxide 30 mmol/L (22-29); Chloride 105 mmol/L (96-108); Cholesterol 187 mg/dL (<200); Estimated Glomerular Filt Rate > 60; Glucose Fasting 78 mg/dL (60-99); HDL Cholesterol 49 mg/dL (>40); LDL Cholesterol Calculated 119 mg/dL (<100); Potassium 4.1 mmol/L (3.3-5.1); Sodium 143 mmol/L (135-145); TSH reflex Free T4 1.83 uIU/mL (0.32-4.0); Total Protein 6.9 g/dL (6.5-8.0); Triglycerides 95 mg/dL (<150); Vitamin D 25-OH Total 56.2 ng/mL (>30)
== END 2023-07-18 09:27 | disposition home or self-care (01) ==
LOC: HO.HMGCLDS 09:26
PROVIDERS: PCP Internal Medicine; Visit Provider Internal Medicine
DX: E55.9 Vitamin D deficiency, unspecified (principal); I10 Essential (primary) hypertension; I48.0 Paroxysmal atrial fibrillation
CPT/HCPCS: 36415; 80053; 80061; 82306; 84443; 85025

== ENCOUNTER 2023-07-20 08:33 | Outpatient (AMB) | payer MEDICARE, SELFPAY ==
--- NOTE | 2023-07-20 08:52 | AM.OFFVISMDC ---
Intake Vital Signs 07/20/23 09:12 Height 5 ft 4 in Weight 140 lb BMI 24.0 BP 128/80 Blood Pressure Location Lt brachial Position Sitting Pulse 57 Pulse Source Pulse Oximeter Pulse Oximetry (%) 98 Oxygen Delivery Method Room Air Intake Visit Reasons: [facility] G0439 Allergies omeprazole [From PRILOSEC] Allergy (Unknown, Verified 07/20/23 09:17) NAUSEA quinidine [QUINIDINE] Allergy (Unknown, Verified 07/20/23 09:17) NAUSEA Medication List - Last Reconciled 07/20/23 by Nany Antonio MD apixaban (Eliquis) 5 mg PO BID atenolol 100 mg PO DAILY xpkbtul-oyfgbwfhc-khulku-zinc 1 tab PO DAILY cholecalciferol (vitamin D3) 25 mcg PO DAILY irbesartan-hydrochlorothiazide 300-12.5 mg 1 tab PO DAILY levothyroxine 50 mcg PO DAILY HPI [facility] G0439 HPI Details Initiated the conversation about Advanced Directives. Advanced Directives help? patients prepare for current and future decisions about their medical treatment? and place of care. Discussed with patient that it is a process where a patients? current condition and prognosis are reviewed, their wishes for information? regarding their illness are elicited, and likely medical dilemmas are presented? and options discussed. The form can be amended as needed, reviewed yearly and? make changes as needed IPPE/AWV ? year old presents? for her ? Annual? Wellness Visit, initial visit.? Medical / Social History Reviewed? Past Medical History ?Yes? . ? [place]? of Care / Care Team list updated ?Yes . ? Surgical/Hospitalization? History ?Yes . ? Current Medications? (including OTC and supplements) ?Yes . ? Family History ?Yes? . ? Tobacco? Control form ?Yes . ? AUDIT-C (Alcohol use) form? ?Yes . ? Illicit drug use in Social? History ?Yes . ? Current diagnosis of? depression? ?No ? Appropriate PHQ2/PHQ9? completed ?Yes . ? Data entered by ?Medical? Sound Art Instructor and reviewed by provider ? Fall Risk ? Fall? History? Have you had any falls with? injury in the past year? ?No . ? Have you had two or more? falls in the past year? ?No . ? Fall Risk Assessment: ?No? falls in the past year . ? HRA filled out by? the patient, reviewed by Provider and scanned. ? IPPE/AWV ? Balance? [place]? ?Yes . ? Tandem? walk ?Yes . ? Walk and? Turn ?Yes . ? Rise from? sit to stand ?Yes . ?Vision? Corrective? lens ?Yes ? Vision? screen ? Up-to-date, has an appointment [] for vision? screening and glaucoma screening ?Hearing? Whisper? test ?pass .? Initiated the conversation about Advanced Directives. Advanced Directives help? patients prepare for current and future decisions about their medical treatment? and place of care. Discussed with patient that it is a process where a patients? current condition and prognosis are reviewed, their wishes for information? regarding their illness are elicited, and likely medical dilemmas are presented? and options discussed. The form can be amended as needed, reviewed yearly and? make changes as needed Written? Plan?Completed. See Patient? Documents. [facility] Medical History Asymptomatic bacteriuria Annual physical exam Skin rash Essential hypertension Paroxysmal atrial fibrillation Internal hemorrhoid Tubular adenoma Hypothyroidism HTN (hypertension) Surgical History History of Hx of hysterectomy Hx of appendectomy H/O colonoscopy Hx of arthroscopic knee surgery Status post endovenous radiofrequency ablation (RFA) of saphenous vein History of radiofrequency ablation (RFA) procedure for cardiac arrhythmia Family History Mother No problems noted. Father No problems noted. Daughter No problems noted. Son No problems noted. Son No problems noted. Social History Housing: House Alcohol intake: never Patient Tobacco Use Status: Never used Tobacco e-Cigarette/Vaping Use: Never Used Current occupational status: retired Questionnaire Medicare Wellness Checkup [age] What gender do you identify with?: female During the past 4 weeks, how much have you been bothered by emotional problems such as feeling anxious, depressed, irritable, sad or downhearted, and blue?: slightly During the past 4 weeks, has your physical & emotional health limited your social activities with family, friends, neighbors, or groups?: not at all During the past 4 weeks, how much bodily pain have you generally had?: very mild pain During the past 4 weeks, was someone available to help you if you needed & wanted help?: yes, as much as I wanted During the past 4 weeks, what was the hardest physical activity you could do for at least 2 minutes?: heavy Can you get to places out of walking distance without help? (For eg., can you travel alone on buses, taxis or drive your car?): Yes Can you go shopping for groceries or clothes without someone's help?: Yes Can you prepare your own meals?: Yes Can you do your housework without help?: Yes Because of any health problems, do you need the help of another person with your personal care needs such as eating, bathing, dressing or getting around the house?: No Can you handle your own money without help?: Yes During the past 4 weeks, how would you rate your health in general?: very good During the past 4 weeks how have things been going for you?: very well; could hardly better Are you having difficulties driving your car?: no Do you always fasten your seat belt when you are in a car?: yes, usually During past 4 weeks, have you been bothered by the following: never: Falling or dizzy when standing up, Sexual problems?, Trouble eating well?, Teeth or denture problems?, Problems using the telephone? and Tiredness or fatigue? Have you fallen 2 or more times in the past year?: No Are you afraid of falling?: No Are you a smoker?: no During the past 4 weeks, how many drinks of wine, beer, or other alcoholic beverages did you have?: no alcohol at all Do you exercise for about 20 minutes 3 or more times a week?: yes, some of the time Have you been given information to help with the following?: no: Hazards in your house that might hurt you? and no: Keeping track of your medications? How often do you have trouble taking medicines the way you have been told to take them?: I always take medicine as prescribed How confident are you that you can control & manage most of your health problems?: very confident What is your race?: White Mini Mental State Exam (MMSE) Orientation What is the (year) (season) (date) (day) (month)?: year, season, date, day and month Where are we (state) (county) (town or city) (hospital) (floor)?: state, county, town or city, hospital/clinic and floor Registration Name of 3 unrelated objects clearly and slowly, then ask patient to repeat all 3 of them. (1st repeat determines score. Make sure they can repeat all three): object 1, object 2 and object 3 Attention & Calculation (CHOOSE ONE) Spell WORLD backwards (DLROW): 5 letters Recall Ask patient to repeat the 3 items from question #3.: object 1, object 2 and object 3 Language Show patient a wristwatch & ask what it is. Repeat for pencil.: watch and pencil Ask the patient to repeat the phrase 'No ifs, ands, or buts' after you.: correct Ask the patient to 'take a piece of paper with their right hand' 'fold paper in half' 'place paper on floor': take paper in right hand, fold paper in half and place paper on floor Print the sentence 'CLOSE YOUR EYES' on a piece. If patient actually closes eyes then score.: followed written direction Give patient a blank piece of paper & ask to write a sentence. Score if it contains a noun & verb.: sentence contains subject and verb Score Score: 29 Activity of Daily Living Bathing - sponge bath, tub bath or shower: receives no assistance (gets in/out by self, if usual bathing means Dressing - getting clothes from closets & drawers, including inner/outer garments & fasteners.: gets clothes & gets completely dressed without help Toileting - going to the 'toilet room' for urine/bowel elimination & cleaning self/arranging clothes: goes to toilet room, cleans self, arranges clothes without help Transfer: moves in & out of bed and chair without help (may use support object) Continence: controls urination/bowel movements completely by self Feeding: feeds self without help Total Score: 0 Information obtained from: patient Using telephone: independent Traveling: independent Shopping: independent Preparing meals: independent Housework: independent Taking medicine: independent Managing money: independent PHQ-9 Over the last 2 weeks, how often have you been bothered by any of the following problems? 1. Little interest or pleasure in doing things: not at all 2. Feeling down, depressed, or hopeless: not at all 3. Trouble falling or staying asleep, or sleeping too much: not at all 4. Feeling tired or having little energy: not at all 5. Poor appetite or overeating: not at all 6. Feeling bad about yourself - or that you are a failure or have let yourself or your family down: not at all 7. Trouble concentrating on things, such as reading the newspaper or watching television: not at all 8. Moving or speaking so slowly that other people could have noticed. Or the opposite - being so fidgety or restless that you have been moving around a lot more than usual: not at all 9. Thoughts that you would be better off or of hurting yourself in some way: not at all Total score: 0 Depression Screening Interpretation: Negative Depression Screening Done: Yes Source: Developed by Drs. Lamin Charles, Rosalina Nava, Cyrus Goode and colleagues, with an educational lambert from [employer]. Review of Systems Const All systems reviewed & are unremarkable except as noted in HPI and below Reports no additional complaints Eyes Reports no additional complaints ENT Reports no additional complaints Card Reports no additional complaints Resp Reports no additional complaints GI Reports no additional complaints Reports no additional complaints Musc Reports no additional complaints Skin/Breast Reports system reviewed and no additional complaints, except as documented Physical Exam Vital Signs: Last Vital Signs Pulse 57 07/20/23 09:12 BP 128/80 07/20/23 09:12 Pulse Ox 98 07/20/23 09:12 Oxygen Delivery Method Room Air 07/20/23 09:12 BMI result Body Mass Index 24.0 Const General: no acute distress HEENT Head: Yes normal to inspection Ears: hearing grossly normal bilaterally Eyes General: appearance normal, both eyes and all related structures Neck Neck: Yes no lymphadenopathy and Yes supple Resp Effort & Inspection: normal respiratory effort Auscultation: clear to auscultation bilaterally Cardio Rhythm: regular rhythm Heart sounds: S1 normal heart sound present and S2 normal heart sound present GI Inspection: Yes normal to inspection Palpation (GI): Soft to palpation Percussion: Yes normal to percussion Auscultation: normal bowel sounds Extrem General: Yes no clubbing, cyanosis or edema Assessment & Plan Assessment & Plan (1) Essential hypertension: Code(s): I10 - Essential (primary) hypertension Plan: CONTINUE ATENOLOL AND IRBESARTAN WITH HYDROCHLOROTHIAZIDE (2) Annual physical exam: Code(s): Z00.00 - Encounter for general adult medical examination without abnormal findings Plan: Well-balanced diet regular physical activity discussed with the patient. (3) Paroxysmal atrial fibrillation: Comment: s/p 3 ablations, f/u with [facility] [place] Cardiology Code(s): I48.0 - Paroxysmal atrial fibrillation Plan: Continue Eliquis and follow-up with Cardiology annually Orders: Orders Comprehensive [place]. Panel Fast 365 Days I10 - Essential (primary) hypertension Complete Blood Count Auto Diff 365 Days I10 - Essential (primary) hypertension Lipid Panel 365 Days I10 - Essential (primary) hypertension TSH reflex Free T4 365 Days I10 - Essential (primary) hypertension Vitamin D 25-OH Total 365 Days I10 - Essential (primary) hypertension Quality Reporting (2020) Depression/Bipolar (159/160/161/177) PHQ-9: Total score: 0 Coding Level of Care Code Medicare Subsequent (G0439) Diagnoses Essential hypertension I10 Annual physical exam Z00.00 Paroxysmal atrial fibrillation I48.0 CPT Codes Advance Care Planning - Time spent: 1-15 minutes, not on file ([id number]) Advance Care Planning Advance Care Planning discussion: Exists, not on file Forms completed: Health Care Proxy Time spent: 1-15 minutes, not on file
[2023-07-20 09:12] VITALS: BP 128/80; PULSE 57; O2SAT 98; BMI 24.0
== END 2023-07-20 09:44 | disposition home or self-care (01) ==
PROVIDERS: PCP Internal Medicine; Visit Provider Internal Medicine
DX: I10 Essential (primary) hypertension (principal); Z00.00 Encounter for general adult medical examination without abnormal findings; I48.0 Paroxysmal atrial fibrillation
CPT/HCPCS: 1124F; G0439

== ENCOUNTER 2023-08-21 09:16 | Outpatient (REF) | payer MEDICARE, SELFPAY | END 2023-08-21 09:17 | disposition home or self-care (01) | LOC: HO.MAMMO 09:16 | PROVIDERS: PCP Internal Medicine; Visit Provider Internal Medicine | DX: Z12.31 Encounter for screening mammogram for malignant neoplasm of breast (principal) | CPT/HCPCS: 77063; 77067 ==

== ENCOUNTER → 2023-08-21 09:30 | Outpatient (BNV) | payer MEDICARE, SELFPAY | PROVIDERS: PCP Internal Medicine; Visit Provider Radiology Diagnostic Radiology | DX: Z12.31 Encounter for screening mammogram for malignant neoplasm of breast (principal) | CPT/HCPCS: 77063; 77067 ==

== ENCOUNTER 2024-02-21 13:42 | Outpatient (AMB) | payer MEDICARE, SELFPAY ==
[2024-02-21 13:57] VITALS: BP 190/76; PULSE 60; BMI 24.7
--- NOTE | 2024-02-21 13:57 | A.OFFVIS_ITS ---
Vital Signs 02/21/24 13:57 Height 5 ft 4 in Weight 144 lb 2.917 oz BMI 24.7 BP 190/76 H Blood Pressure Location Lt brachial Position Sitting Pulse 60 Intake Visit Reasons: 1 year follow up Sliver Handler Required: No Accompanied by: Spouse Allergies omeprazole [From PRILOSEC] Allergy (Unknown, Verified 07/20/23 09:17) NAUSEA quinidine [QUINIDINE] Allergy (Unknown, Verified 07/20/23 09:17) NAUSEA Medication List - Last Reconciled 02/21/24 by Chandler Hurt MD apixaban (Eliquis) 5 mg PO BID atenolol 100 mg PO DAILY kjnmixg-ohtpxmfhq-mhloty-zinc 1 tab PO DAILY cholecalciferol (vitamin D3) 25 mcg PO DAILY irbesartan-hydrochlorothiazide 300-12.5 mg 1 tab PO DAILY levothyroxine 50 mcg PO DAILY HPI Comments Details: Lola returns for follow up regarding atrial fibrillation and hypertension. In the past, she was having side effects from very high dose of beta-blockers. Was having some skin issues. Then switched to diltiazem. There were some side effects from this as well and then switched to Atenolol. Overall, she feels well in that regard and no recurrent palpitations. Otherwise, blood pressure is high today. 190/76 mm Hg. Rechecked by myself and still high. Patient however states that when she checked her own blood pressure few days ago, it was only in the 130s. Hence not clear. [facility]LY [facility], [facility] Medical History Asymptomatic bacteriuria Annual physical exam Skin rash Essential hypertension Paroxysmal atrial fibrillation Internal hemorrhoid Tubular adenoma Hypothyroidism HTN (hypertension) Surgical History History of Hx of hysterectomy Hx of appendectomy H/O colonoscopy Hx of arthroscopic knee surgery Status post endovenous radiofrequency ablation (RFA) of saphenous vein History of radiofrequency ablation (RFA) procedure for cardiac arrhythmia Family History Mother No problems noted. Father No problems noted. Daughter No problems noted. Son No problems noted. Son No problems noted. Social History (Reviewed 10/17/24 @ 13:59 by FRANKLIN Ortiz Housing: House Alcohol intake: never Patient Tobacco Use Status: Never used Tobacco e-Cigarette/Vaping Use: Never Used Current occupational status: retired Review of Systems Const Denies chills, Denies fatigue, Denies fever(s), Denies weight gain and Denies weight loss ENT Denies dizziness Card Denies chest pain, Denies leg edema, Denies lightheadedness, Denies palpitations, Denies dyspnea on exertion, Denies orthopnea and Denies other Resp Denies cough and Denies dyspnea on exertion GI Denies hematochezia and Denies change in stool character Musc Denies abnormal gait, Denies muscle weakness, Denies numbness, Denies radiating pain into limb and Denies tingling Neuro Denies abnormal gait, Denies dizziness, Denies numbness and Denies tingling Endo Denies fatigue and Denies palpitations Physical Exam Vital Signs: Last Vital Signs Pulse 60 02/21/24 13:57 BP 190/76 H 02/21/24 13:57 BMI result Body Mass Index 24.7 Const General: comfortable and no acute distress Orientation/consciousness: patient oriented x3 HEENT Other: Unremarkable Head: Yes normal to inspection Neck Neck: Yes normal visual inspection Chest Chest palpation & inspection: normal inspection of the chest Resp Auscultation: clear to auscultation bilaterally Cardio Palpation: normal PMI Heart sounds: S1 normal heart sound present, S2 normal heart sound present, no gallops, no murmurs and no rubs GI Palpation (GI): Soft to palpation Back/Spine/Pelvis Other: unremarkable Skin General skin exam: no rashes or lesions noted Neuro General: patient oriented x3 Extrem General: Yes normal to inspection Psych Mental Status: mental status grossly normal Office Procedures EKG Details: EKG with underlying sinus rhythm, 60/Min; sinus arrhythmia; right bundle-branch block pattern. [id number], Complete Assessment & Plan Assessment & Plan (1) Paroxysmal atrial fibrillation: Code(s): I48.0 - Paroxysmal atrial fibrillation Category: Medical Plan: No recent issues. Continue atenolol. Continue anticoagulation. (2) Essential hypertension: Code(s): I10 - Essential (primary) hypertension Category: Medical Plan: Continue Irbesartan/HCTZ. Blood pressure seems high. Manually checked by me and no change. Advised her to go home and check some blood pressures twice a day for the next few days and get back to us. Suggest starting amlodipine 5 mg daily. If any intolerance issues, then consider spironolactone. Obtain echocardiogram for any left ventricular hypertrophy/diastolic dysfunction or left atrial enlargement which could indicate suboptimal blood pressure control. Plan Total time spent including review of data, counseling, documentation, coordination of care-32 minutes. Orders: Orders CA echo transthoracic complete Today I10 - Essential (primary) hypertension Medications: New amlodipine 5 mg PO DAILY 90 tabs 0RF Coding Level of Care Code Est Pt Level 4 (38830) Diagnoses Paroxysmal atrial fibrillation I48.0 Essential hypertension I10 CPT Codes EKG - CPT: 72083-Jklyzrgznuhjrmhxe, Complete ([id number])
== END 2024-02-21 14:27 | disposition home or self-care (01) ==
PROVIDERS: PCP Internal Medicine; Visit Provider Internal Medicine
DX: I48.0 Paroxysmal atrial fibrillation (principal); I10 Essential (primary) hypertension
CPT/HCPCS: 93010; 99214

== ENCOUNTER → 2024-02-21 13:42 | Outpatient (BNVA) | payer MEDICARE, SELFPAY | PROVIDERS: PCP Internal Medicine; Visit Provider Internal Medicine | DX: I48.0 Paroxysmal atrial fibrillation (principal); I10 Essential (primary) hypertension; R94.31 Abnormal electrocardiogram [ECG] [EKG]; I45.10 Unspecified right bundle-branch block | CPT/HCPCS: 93005; 99212 ==

== ENCOUNTER → 2024-03-20 12:06 | Outpatient (BNVA) | payer MEDICARE, SELFPAY | PROVIDERS: PCP Internal Medicine ==

== ENCOUNTER → 2024-04-17 10:02 | Outpatient (BNVA) | payer MEDICARE, SELFPAY | PROVIDERS: PCP Internal Medicine; Visit Provider Internal Medicine ==

== ENCOUNTER → 2024-05-27 12:54 | Outpatient (REF) | payer MEDICARE, SELFPAY ==
--- NOTE | 2024-05-27 13:00 | CA_ITS ---
Transthoracic Echocardiogram Patient (Last, First, Middle): Lola Eubanks L Gender: Female Date of : 1945 Age: 78 Procedure Date: 05/27/2024 Procedure Type: Transthoracic Echocardiogram Location: OP Height: 162.56 cm Weight: 66.23 kg BSA: 1.71 m2 Heart Rate: bpm BP: 130 / 70 mmHg Associate Artistic Director: Referring MD: Chandler Hurt MD Hydroelectric Plant Maintainer: Steven Mcghee MD Symptoms: I10 - Essential (primary) hypertension Study Quality: Adequate ECG Rhythm: Sinus Conclusions: - 1. Normal LV ejection fraction of 60 65% with pseudonormal filling pattern 2. Mildly dilated left atrium 3. Mild mitral regurgitation 4. Normal RV systolic pressure 5. No pericardial effusion Findings Left Ventricle Normal left ventricular size, thickness, and systolic function. The visually estimated ejection fraction is between 60-65%. Spectral Doppler is indicative of a pseudonormal filling pattern. E/E prime ratio is between 8 and 15 consistent with indeterminate filling pressures. Wall Motion Rest Echo Findings The basal inferior and basal inferoseptal segments are hypokinetic. All other scored wall segments showed normal motion. Right Ventricle Normal right ventricular cavity size and systolic function. Atria The left atrium is mildly dilated. There is no evidence of interatrial shunt. The A-wave on mitral inflow is very small could suggest atrial myopathy. The right atrium is likely dilated. Aortic Valve Normal aortic valve structure and function. There is no aortic valve stenosis. There is no aortic valve regurgitation. Mitral Valve There is mild anterior and posterior mitral leaflet thickening. There is mild mitral annular calcification. There is mild mitral valve regurgitation. There is no mitral valve stenosis. Pulmonic Valve The pulmonic valve is likely normal. Tricuspid Valve Normal tricuspid valve structure. There is trace tricuspid valve regurgitation. The right ventricular systolic pressure is normal. The right ventricular systolic pressure is 23 mmHg. Normal right atrial pressure. There is no evidence of pulmonary hypertension. Great Vessels All visible segments of the aorta are normal in size. The pulmonary artery was not well visualized. There is no dilatation of the ascending aorta measuring 3.00 cm. Venous The inferior vena cava is normal in size and collapses greater than 50% with inspiration. Pericardium/Pleural There is no evidence of pericardial effusion. Prior Study Comparison No significant change compared to prior study dated: 11/24/2019. Measurements 2D Linear Measurements IVSd: 1.12 0.6-0.9/0.6-1.0 cm LVIDd: 4.68 3.9-5.3/4.2-5.9 cm LVIDd Index: 2.74 2.4-3.2/2.2-3.1 cm/m2 LVIDs: 3.06 2.0-3.6 cm LVPWd: 1.04 0.7-1.1 cm Ao Root: 2.70 2.1-3.5 cm LA Diam: 4.00 2.7-3.8/3.0-4.0 cm LAIDs Index: 2.34 1.5-2.3 cm/m2 LV Mass: 226.21 67-162/88-224 g LV Mass Index: 132.29 43-95/49-115 g/m2 LVOT Diam: 1.90 3.0+(-)1.3 cm 2D Systolic Function EF 4C: 69.30 >55% EF 2C: 55.50 >55% EF BiP: 62.50 >55% Mitral Valve MV Pk E: 0.81 MV Decel Time: 310.00 E'Lateral: 7.29 E'Medial: 5.22 E/E' Med: 15.50 E/E' Lat: 11.10 PHT: 91.00 MVA PHT: 2.42 Decel Otero: 2.61 LVOT LVOT Pk Gagan: 0.68 LVOT Mn Gagan: 0.44 LVOT VTI: 0.19 LVOT Pk Grad: 2.00 LVOT Mn Grad: 1.00 LVOT Diam: 1.90 LVOT Area: 2.84 Diastolic Function MV Pk E: 0.81 E'Medial: 5.22 E/E' Med: 15.50 E' Laterial: 7.29 E/E' Lat: 11.10 Right Ventricle TAPSE (mm): 33.00 TVS' Gagan: 10.00 Tricuspid Valve TR Pk Gagan: 2.25 TR Pk Grad: 20.00 RA Press: 3.00 RVSP: 23.00 Great Vessels Aorta Ao Root-2D: 2.70 2.0-3.7 cm Ao Asc: 3.00 2.1-3.4 cm Pulmonary Valve PV Pk Gagan: 0.71 Peak PV Grad: 2.00 Updated in Other Vendor System with Status of Final Steven Mcghee MD electronically signed on 05/28/2024 8:43:57 AM with status of Final
== END ==
LOC: HO.CARD 12:54
PROVIDERS: PCP Internal Medicine; Visit Provider Internal Medicine
DX: I10 Essential (primary) hypertension (principal)
CPT/HCPCS: 93306

== ENCOUNTER → 2024-05-27 13:00 | Outpatient (BNV) | payer MEDICARE, SELFPAY | PROVIDERS: PCP Internal Medicine; Visit Provider Internal Medicine Cardiovascular Disease | DX: I34.0 Nonrheumatic mitral (valve) insufficiency (principal); I42.8 Other cardiomyopathies | CPT/HCPCS: 93306 ==

== ENCOUNTER 2024-05-28 13:42 | Outpatient (AMB) | payer MEDICARE, SELFPAY ==
[2024-05-28 13:56] VITALS: BP 198/80; PULSE 76; BMI 23.8
--- NOTE | 2024-05-28 13:56 | MHC.OFFVIS ---
Vital Signs 05/28/24 13:56 05/28/24 14:05 Height 5 ft 4 in Weight 138 lb 14.259 oz BMI 23.8 BP 198/80 H 168/82 H Blood Pressure Location Lt brachial Rt brachial Position Sitting Sitting Pulse 76 Pulse Source Pulse Oximeter Intake Visit Reasons: 3m follow up Allergies omeprazole [From PRILOSEC] Allergy (Unknown, Verified 07/20/23 09:17) NAUSEA quinidine [QUINIDINE] Allergy (Unknown, Verified 07/20/23 09:17) NAUSEA Medication List - Last Reconciled 05/28/24 by Chandler Hurt MD amlodipine 2.5 mg PO DAILY apixaban (Eliquis) 5 mg PO BID atenolol 100 mg PO DAILY ztnrdoa-nlenpihxo-tzbhmj-zinc 1 tab PO DAILY cholecalciferol (vitamin D3) 25 mcg PO DAILY irbesartan-hydrochlorothiazide 300-12.5 mg 1 tab PO DAILY levothyroxine 50 mcg PO DAILY HPI Comments Details: Lola returns for follow up regarding atrial fibrillation and hypertension. In the past, she was having side effects from very high dose of beta-blockers. Was having some skin issues. Then switched to diltiazem. There were some side effects from this as well and then switched to Atenolol. In that regard, she is fine for the most part. Rare palpitations. More recently, blood pressures have been running high and that has become an issue. She has tried amlodipine but she feels that sometimes her blood pressure drops too much. Today again her blood pressure is very high. She is on a small dose of amlodipine at 2.5 mg daily. No other symptoms like angina. [facility] Medical History Asymptomatic bacteriuria Annual physical exam Skin rash Essential hypertension Paroxysmal atrial fibrillation Internal hemorrhoid Tubular adenoma Hypothyroidism HTN (hypertension) Surgical History History of Hx of hysterectomy Hx of appendectomy H/O colonoscopy Hx of arthroscopic knee surgery Status post endovenous radiofrequency ablation (RFA) of saphenous vein History of radiofrequency ablation (RFA) procedure for cardiac arrhythmia Family History Mother No problems noted. Father No problems noted. Daughter No problems noted. Son No problems noted. Son No problems noted. Social History Housing: House Alcohol intake: never Patient Tobacco Use Status: Never used Tobacco e-Cigarette/Vaping Use: Never Used Current occupational status: retired Review of Systems Const Denies weakness ENT Denies dizziness Card Denies chest pain, Denies chest pain with activity, Denies syncope, Denies rapid heart rate, Denies pedal edema, Denies edema, Denies leg edema, Denies lightheadedness, Denies palpitations, Denies dyspnea, Denies dyspnea on exertion and Denies orthopnea Resp Denies cough, Denies dyspnea and Denies dyspnea on exertion GI Denies hematochezia and Denies change in stool character Musc Denies abnormal gait, Denies muscle cramps, Denies muscle weakness, Denies numbness, Denies radiating pain into limb and Denies tingling Neuro Denies abnormal gait, Denies dizziness, Denies syncope, Denies numbness, Denies tingling and Denies weakness Endo Denies palpitations Physical Exam Vital Signs: Last Vital Signs Pulse 76 05/28/24 13:56 BP 168/82 H 05/28/24 14:05 BMI result Body Mass Index 23.8 Const General: comfortable and no acute distress Orientation/consciousness: patient oriented x3 HEENT Other: Unremarkable Head: Yes normal to inspection Neck Neck: Yes normal visual inspection Chest Chest palpation & inspection: normal inspection of the chest Resp Auscultation: clear to auscultation bilaterally Cardio Palpation: normal PMI Heart sounds: S1 normal heart sound present, S2 normal heart sound present, no gallops, no murmurs and no rubs GI Palpation (GI): Soft to palpation Back/Spine/Pelvis Other: unremarkable Skin General skin exam: no rashes or lesions noted Neuro General: patient oriented x3 Extrem General: Yes normal to inspection Psych Mental Status: mental status grossly normal Assessment & Plan Assessment & Plan (1) Paroxysmal atrial fibrillation: Code(s): I48.0 - Paroxysmal atrial fibrillation Category: Medical Plan: Continue atenolol. Continue anticoagulation. (2) Essential hypertension: Code(s): I10 - Essential (primary) hypertension Category: Medical Plan: Continue irbesartan/hydrochlorothiazide. With regard to amlodipine, we can try 5 mg daily but she is worried that the blood pressure drops too much. Hence advised her that she can check her morning blood pressures before taking the medication. If it is more than 150 mmHg systolic, then take the 5 mg dose; but if lower than that, then try the 2.5 mg dose. We may need to take a different dose each day depending on her baseline readings as there is also concern that the blood pressure drops too much after medications. Next option would be an agent like spironolactone. However, will need labs before that. As there is a blood pressure difference between the 2 upper extremities, most likely there is some vascular disease. We will also check her renal arteries for any stenosis. With regard to the basal inferior wall motion abnormality, review the images. Appearance somewhat similar in the previous study as well as the current study. Not clear if it is a true finding or artifactual. Clinically, he has got absolutely no angina. Consider stress testing after the blood pressure is well controlled. Discussed. Plan Total time spent including review of data, counseling, documentation, coordination of care-31 minutes. Orders: Orders Comprehensive [place]. Panel Fast 365 Days I10 - Essential (primary) hypertension US renal doppler Today I70.1 - Atherosclerosis of renal artery Coding Level of Care Code Est Pt Level 4 (56122) Diagnoses Paroxysmal atrial fibrillation I48.0 Essential hypertension I10
[2024-05-28 14:05] VITALS: BP 168/82
--- OUTSIDE RECORDS SUMMARY | 2024-05-28 15:56 | XMS_ITS ---
Author Organization [facility] Address [address] [place] [address] Care Team Providers Care Suture Winder Hand Name Role Phone Nany Antonio MD Primary Care Provider Lamin Hand [phone] MEDICATIONS Medication SIG (Take, Route, Fr equency, Duration) Notes Start Date End Date Status Suprep Bowel Prep 1 kit Take 12 pills wi th 1,440ml of water(48 ounces) Orally Twice for 1 days 03/22/2023 Active Ondansetron 4 MG 1 tablet on the tong ue and allow to dissolve Orally Take 30 to 60 minutes before starting the colonoscopy prep, and then repeat in 4 to 6 hours. Then use every 6 hours as needed for nausea for 1 days 03/26/2023 Active Sutab 7371-153-887 MG [address] dose the day before and second dose 6 to 8 hours before the colonoscopy with 48 ounces of water with each set of 12 pills Orally Twice a day for 1 day(s) 03/22/2023 Active Encounters Encounter Location Date Provider Diagnosis [facility] [address] [place] [address] 03/18/2023 Lamin Louise PLAN OF TREATMENT Medication Medication Name Sig Start Date Stop Date Notes Suprep Bowel Prep 1 kit Take 12 pills wi th 1,440ml of water(48 ounces) Orally Twice for 1 days 03/22/2023 Ondansetron 4 MG 1 tablet on the tong ue and allow to dissolve Orally Take 30 to 60 minutes before starting the colonoscopy prep, and then repeat in 4 to 6 hours. Then use every 6 hours as needed for nausea for 1 days 03/26/2023 Sutab 4666-982-692 MG [address] dose the day before and second dose 6 to 8 hours before the colonoscopy with 48 ounces of water with each set of 12 pills Orally Twice a day for 1 day(s) 03/22/2023
--- OUTSIDE RECORDS SUMMARY | 2024-05-28 15:56 | XMS_ITS ---
Author Organization [facility] Address [address] [place] [address] Care Team Providers Care Academic Interventionist Name Role Phone Nany Antonio MD Primary Care Provider Lamin Hand [phone] REASON FOR VISIT screening, hx polyps PROBLEMS Problem Type ICD Code Onset Dates Problem Status W/U Status Risk SNOMED Code Notes Problem Diverticulosis of large intestine without perforation or abscess without bleeding (K57.30) Active confirmed Diverticul ar disease of colon (393902039) Encounters Encounter Location Date Provider Diagnosis [facility] Outpatient [address] [place] [id number] 06/20/2023 Lamin Louise Encounter for scre ening colonoscopy Z12.11 ; Colon polyps K63.5 ; Diverticulosis of large intestine without perforation or abscess without bleeding K57.30 and Other hemorrhoids K64.8 ASSESSMENTS Encounter Date Diagnosis Assessment Notes Treatment Notes Treatment Clinical Notes 06/20/2023 Encounter for screening colonoscopy (ICD-10 - Z12.11) 06/20/2023 Colon polyps (ICD-10 - K63.5) 06/20/2023 Diverticulosis of large intestine without perforation or abscess without bleeding (ICD-10 - K57.30) 06/20/2023 Other hemorrhoids (ICD-10 - K64.8) PLAN OF TREATMENT No Information
== END 2024-05-28 14:24 | disposition home or self-care (01) ==
PROVIDERS: PCP Internal Medicine; Visit Provider Internal Medicine
DX: I48.0 Paroxysmal atrial fibrillation (principal); I10 Essential (primary) hypertension
CPT/HCPCS: 99214

== ENCOUNTER → 2024-05-28 13:42 | Outpatient (BNVA) | payer MEDICARE, SELFPAY | PROVIDERS: PCP Internal Medicine; Visit Provider Internal Medicine | DX: I10 Essential (primary) hypertension (principal); I48.0 Paroxysmal atrial fibrillation; I70.1 Atherosclerosis of renal artery | CPT/HCPCS: 99212 ==

== ENCOUNTER 2024-07-02 08:43 | Outpatient (REF) | payer MEDICARE, SELFPAY ==
--- NOTE | ~2024-07-02 | US_ITS ---
CLINICAL HISTORY: I70.1 - Atherosclerosis of renal artery Renal duplex ultrasound. COMPARISON: None Technique: Real time duplex ultrasound imaging was performed by the tobacco stemmer machine. Multiple signs and displays sales representative static images were saved for review. FINDINGS: Aorta: Normal waveform, 96 cm/s. Right kidney: Normal size and echotexture, 9.7 cm length. Main renal artery peak systolic velocities: Proximal: 59 cm/s Mid: 95 cm/s Distal: 102 cm/s Segmental resistive index: 0.8 Left kidney: Normal size and echotexture, 10.0 cm length. Main renal artery peak systolic velocities: Proximal: 87 cm/s Mid: 108 cm/s Distal: 83 cm/s Segmental resistive index: 0.78 IMPRESSION: 1. No evidence of renal artery stenosis. 2. Borderline elevated resistive indices bilaterally. This can be associated with medical renal disease. This document has been electronically signed by: Clifford Quigley MD on 07/02/2024 15:05:25
--- NOTE | ~2024-07-02 | US_ITS ---
CLINICAL HISTORY: I70.1 - Atherosclerosis of renal artery Renal duplex ultrasound. COMPARISON: None Technique: Real time duplex ultrasound imaging was performed by the associate professor of biology. Multiple customer operations representative static images were saved for review. FINDINGS: Aorta: Normal waveform, 96 cm/s. Right kidney: Normal size and echotexture, 9.7 cm length. Main renal artery peak systolic velocities: Proximal: 59 cm/s Mid: 95 cm/s Distal: 102 cm/s Segmental resistive index: 0.8 Left kidney: Normal size and echotexture, 10.0 cm length. Main renal artery peak systolic velocities: Proximal: 87 cm/s Mid: 108 cm/s Distal: 83 cm/s Segmental resistive index: 0.78 IMPRESSION: 1. No evidence of renal artery stenosis. 2. Borderline elevated resistive indices bilaterally. This can be associated with medical renal disease. This document has been electronically signed by: Clifford Quigley MD on 07/02/2024 15:05:25
--- OUTSIDE RECORDS SUMMARY | 2024-07-02 09:22 | XMS_ITS | Patient Health Record ---
Author Organization [facility] Address [address] [place] [address] Care Team Providers Care Lap Machine Tender Name Role Phone Nany Antonio MD Primary Care Provider Erlin Cohn Unavailable [phone] Allergies Allergen (clinical drug ingredient) Drug/Non Drug Allergy documented on EMR Reaction Allergy Type Onset Date Status Metoprolol Succinate rash,blisters Drug Allergy Active Novocain heart races Drug Allergy Activ e omeprazole Prilosec Doesnt feel well Drug Allergy Active quinidine Quinidine Doesnt feel well Drug Allergy Active Reason For Referral No Information Medications Medication SIG (Take, Route, Frequency, Duration) Notes Start Date End Date Status Levothyroxine Sodium 50 MCG Oral for 90 Active Irbesartan 300 MG Oral for 90 Active Toprol XL 100 MG Oral for 90 N ot-Taking Magnesium Active Avapro 150 MG 1 tablet Orally Once a day Not-Taking Calcium Not-Taking amLODIPine Besylate 10 MG Oral for 90 Not-Taking Vitamin D2 Not-Takin g Vitamin C Not-Taking Calcium + D Active Metoprolol Succinate 150 1 tablet Orally Not-Taking Zinc Not-Taking Eliquis 5 MG as directed Orally Active Pradaxa 150 MG Oral for 90 Not -Taking Cardizem 360mg Once a day Acti ve medroxyPROGESTERone Acetate 10 MG Oral for 90 Not-Taking Immunizations Vaccine Route Administration Date Status Comme nts COVID-19 Moderna Vaccine Unknown 03/07/2021 Administered 06/2020 2nd 07/2020 Social History Tobacco Use: Social History Observation Description Date Details (start date - stop date) Former Smoker NA - NA Tobacco Use/Smoking Question Answer Notes Are you a: former smoker Additional Findings: Tobacco Non-User Current no n-smoker Alcohol Screen Question Answer Notes Did you have a drink containing alcohol in the p ast year? No Points 0 Interpretation Negative Tobacco use other than smoking: Question Answer Notes Are you an other tobacco user? No Problems Problem Type SNOMED Code ICD Code Onset Dates Problem Status W/U Status Risk Notes Problem Acquired hallux valgus (62875328) Hallux valgus (acquired), left foot (M20.12) Active confirmed Problem Localized, primary osteoarthritis of the ankle and/or foot (097013429) Primary osteoarthrit is, left ankle and foot (M19.072) Active confirmed Problem Acquired hallux valgus (42247985) Hallux valgus (acquired), right foot (M20.11) Active confirmed Problem Acquired hammer toe of right foot (7901054225193522) Other hammer toe(s) (acquired), right foot (M20.41) Active confirmed Problem Acquired hammer toe of left foot (2386094011173391) Other hammer toe(s) (acquired), left foot (M20.42) Active confirmed Plan Of Treatment Pending Test Test Name Order Date X ray : Foot, left 3V 07/21/2020 X ray : Foot, right 3V 07/21/2020 17228, [id number]- INJECT or DRAIN, JOINT/BUR SA 12/21/2021 Insurance Providers Payer Name Payer Address Payer Phone Subscriber Number Group Number Insured Name Patient Relationship to Insured Coverage Start Date Coverage End Date [employer]age [address] [place] [address] [id number] Lola Eubanks Self - patient is the insured Medical (General) History Medical History History ICD Code Atrial fibrillation High blood pressure Chicken pox Arthritis Cataracts thyroid Keratoma 701.1 Keratoma 729.5 Pain in Limb 754.61 Flat Foot, Congenital 735.0 Hallux Valgus 110.1 Onychomycosis Surgical History Surgery Date(Month/Year) tonsillectomy 194 appendectomy 1950 section 1965 section 1967 section 1970 hysterectomy 2018 cardiac ablasion - X3 [id number]
--- OUTSIDE RECORDS SUMMARY | 2024-07-02 09:23 | XMS_ITS ---
Author Organization [facility] Address [address] [place] [address] Care Team Providers Care Copy Coordinator Name Role Phone Nany Antonio MD Primary Care Provider Unavaila Lamin Felder [phone] REASON FOR VISIT screening, hx polyps Encounters Encounter Location Date Provider Diagnosis [facility] [place] [address] [place], [place] [address] [place] [phone] 01/10/2023 Lamin Louise PLAN OF TREATMENT No Information
--- OUTSIDE RECORDS SUMMARY | 2024-07-02 09:23 | XMS_ITS | Patient Health Record ---
Author Organization [facility] Address [address] [place] [address] Care Team Providers Care Children'S Court Magistrate Name Role Phone Nany Antonio MD Primary Care Provider Lamin Hand Unavailable [phone] ALLERGIES Allergen (clinical drug ingredient) Drug/Non Drug Allergy documented on EMR Reaction Allergy Type Onset Date Status Prilosec Unknown Drug Allergy Active quinidine Quinidine Sulfate Unknown Drug Allergy Active REASON FOR REFERRAL No Information MEDICATIONS Medication SIG (Take, Route, Frequency, Duration) Notes Start Date End Date Status dilTIAZem HCl ER Coated Beads 180 MG Oral for 90 Active Eliquis 5 MG Oral for 90 Activ e Irbesartan-hydroCHLOROthiaz jose carlos 300-12.5 MG Oral for 90 Active Ondansetron 4 MG 1 tablet on the tong ue and allow to dissolve Orally Take 30 to 60 minutes before starting the colonoscopy prep, and then repeat in 4 to 6 hours. Then use every 6 hours as needed for nausea for 1 days 03/26/2023 Active Sutab 7490-294-592 MG [address] dose the day before and second dose 6 to 8 hours before the colonoscopy with 48 ounces of water with each set of 12 pills Orally Twice a day for 1 day(s) 03/22/2023 Active Levothyroxine Sodium 50 MCG 1 tablet in the morning on an empty stomach Orally Once a day Active Vitamin D3 25 MCG (1000 UT) 1 tablet Ora lly Once a day for 30 day(s) Active SOCIAL HISTORY Sex Assigned At : Social History Observation Description Sex Assigned At Unknown PROBLEMS Problem Type ICD Code Onset Dates Problem Status W/U Status Risk SNOMED Code Notes Problem Colon cancer screening (Z12.11) Active confirmed 107708126 Problem History of adenomatous polyp of colon (Z86.010) Active confirmed 621140064 Problem Diverticulosis of large intestine without perforation or abscess without bleeding (K57.30) Active confirmed Diverticul ar disease of colon (851733015) Problem Preprocedural examination (Z01.818) Active confirmed 379755355193887 Problem care home current use of anticoagulant (Z79.01) Active confirmed 800489683 PLAN OF TREATMENT Future Test Test Name Order Date COLONOSCOPY 03/07/2012 COLONOSCOPY 10/10/2022 Insurance Providers Payer Name Payer Address Payer Phone Subscriber Number Group Number Insured Name Patient Relationship to Insured Coverage Start Date Coverage End Date [facility] [address] [place] [address] [id number] HOSEA FERRERA Self - patient is the insured MEDICARE OF [place] [address] [place] [address] [id number] HOSEA FERRERA Self - patient is the insured MEDICAL (GENERAL) HISTORY Medical History History ICD Code Colonoscopy 03-18-2007-negatie Tubular adenoma removed in 2001 Denies ID,DM,CVA,Lung disease,renal dise ase Hypertension Hypothyroidism Atrial fibrillation-cardiac ablation x 3 at [facility]--last one in 2006--she reports that she still has intermittent atrial fibrillation. She did have some transient atrial fibrillation around the time of her colonoscopy in 2011. Negative screening colonoscopy in 2 Surgical History Surgery Date(Month/Year) x 3 appendectomy Vaginal hysterectomy 2018
--- OUTSIDE RECORDS SUMMARY | 2024-07-02 09:23 | XMS_ITS ---
Author Organization [facility] Address [address] [place] [address] Care Team Providers Care Turret Lathe Tender Name Role Phone Nany Antonio MD Primary Care Provider Lamin Hand [phone] MEDICATIONS Medication SIG (Take, Route, Fr equency, [...] nausea for 1 days 03/26/2023 Active Sutab 7021-918-124 MG [address] dose the day before and second dose 6 to 8 hours before the colonoscopy with 48 ounces of water with each set of 12 pills Orally Twice a day for 1 day(s) 03/22/2023 Active Encounters Encounter Location Date Provider Diagnosis [facility] [address] [place] [address] 03/18/2023 Lamin Louise PLAN OF TREATMENT Medication [...] for nausea for 1 days 03/26/2023 Sutab 9598-348-393 MG [address] dose the day before and second dose 6 to 8 hours before the colonoscopy with 48 ounces of water with each set of 12 pills Orally Twice a day for 1 day(s) 03/22/2023
--- OUTSIDE RECORDS SUMMARY | 2024-07-02 09:23 | XMS_ITS ---
Author Organization [facility] Address [address] [place] [address] Care Team Providers Care Medical Device Name Role Phone Nany Antonio MD Primary Care Provider Lamin Hand [phone] REASON FOR VISIT screening, hx polyps PROBLEMS Problem Type ICD Code Onset Dates Problem Status W/U Status Risk SNOMED Code Notes Problem Diverticulosis of large intestine without perforation or abscess without bleeding (K57.30) Active confirmed Diverticul ar disease of colon (041421868) Encounters Encounter Location Date Provider Diagnosis [facility] Outpatient [address] [place] [id number] 06/20/2023 Lamin Louise Encounter for scre ening [...]
== END 2024-07-02 08:44 | disposition home or self-care (01) ==
LOC: HO.US 08:43
PROVIDERS: PCP Internal Medicine; Visit Provider Internal Medicine
DX: I70.1 Atherosclerosis of renal artery (principal)
CPT/HCPCS: 76775; 93975

== ENCOUNTER → 2024-07-02 08:45 | Outpatient (BNV) | payer MEDICARE, SELFPAY | PROVIDERS: PCP Internal Medicine; Visit Provider Radiology Diagnostic Radiology | DX: I70.1 Atherosclerosis of renal artery (principal) | CPT/HCPCS: 76775; 93975 ==

== ENCOUNTER 2024-07-16 13:46 | Outpatient (AMB) | payer MEDICARE, SELFPAY ==
--- NOTE | 2024-07-16 13:53 | HO.NEPHOV ---
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 She has H/O atrial fibrillation. She had taken various medications over many decades for AFib and hypertension. In the past, she claimed to have side effects from very high dose of beta-blockers & was switched to diltiazem. There were some side effects from this as well and a switch was made to Atenolol. She is also on ARB/HCTZ. Her blood pressures have been running high lately especially in the mornings. She has tried amlodipine to her routine medication regimen but she feels that sometimes her blood pressure drops too much. She has normal sodium diet and denies any CAD, CVA, CHF , carotid stenosis or PAD. She has history of radiofrequency ablation (RFA) for cardiac arrhythmia. She denies any H/O hypokalemia, hypercalcemia, pre eclampsia, BOONE, renal dysfunction, uncontrolled thyroid disorders. She has been taking 2.5 mg Amlodipine to her Atenolol and ARB/HCTZ but will take 5 mg if her systolic BP goes over 150. She recently had a Doppler of renal arteries which showed no evidence of renal artery stenosis but showed borderline elevated resistive indices bilaterally. She did not have any other systemic complaints at the time of this office visit. [facility] Medical History Asymptomatic bacteriuria Annual physical exam Skin rash Essential hypertension Paroxysmal atrial fibrillation Internal hemorrhoid Tubular adenoma Hypothyroidism HTN (hypertension) Surgical History History of Hx of hysterectomy Hx of appendectomy H/O colonoscopy Hx of arthroscopic knee surgery Status post endovenous radiofrequency ablation (RFA) of saphenous vein History of radiofrequency ablation (RFA) procedure for cardiac arrhythmia Family History Mother No problems noted. Father No problems noted. Daughter No problems noted. Son No problems noted. Son No problems noted. Social History Housing: House Alcohol intake: never Patient Tobacco Use Status: Never used Tobacco e-Cigarette/Vaping Use: Never Used Current occupational status: retired Review of Systems Const All systems reviewed & are unremarkable except as noted in HPI and below Physical Exam Vital Signs: Last Vital Signs Pulse 58 07/16/24 13:54 BP 150/78 H 07/16/24 13:54 Pulse Ox 98 07/16/24 13:54 Oxygen Delivery Method Room Air 07/16/24 13:54 BMI result Body Mass Index 25.3 Const General: comfortable and no acute distress Orientation/consciousness: patient oriented x3 HEENT Head: Yes normocephalic Mouth: Normal oral and palatal mucosa present Eyes EOM: EOMs intact bilaterally Neck Neck: Yes supple Resp Auscultation: clear to auscultation bilaterally Cardio Jugular venous distension: no JVD Rate: regular rate Heart sounds: Murmur heart sound present GI Palpation (GI): Soft to palpation Auscultation: normal bowel sounds Skin General skin exam: no rashes or lesions noted Neuro General: patient oriented x3 and moves all extremities Extrem General: Yes no pedal edema Results Reviewed Nephrology Results: Renal US 07/02/24 Assessment & Plan Assessment & Plan (1) Essential hypertension: Code(s): I10 - Essential (primary) hypertension Category: Medical Plan Continue irbesartan/hydrochlorothiazide AM and Atenolol PM; Take 5 mg Amlodipine at noon time Doppler of renal arteries which showed no evidence of renal artery stenosis but showed borderline elevated resistive indices bilaterally Will do a 24 hour BPM after a month with this new regimen, after a month , if continues to have BP lability; Shall consider spironolactone, if needed. Given there is a blood pressure difference between the 2 upper extremities, most likely there is some vascular disease Needs to be on low sodium diet; All these explained to her and ; Answered all questions; F/U given Coding Level of Care Code New Pt Level 4 (81842) Diagnoses Essential hypertension I10
[2024-07-16 13:54] VITALS: BP 150/78; PULSE 58; O2SAT 98; BMI 25.3
--- OUTSIDE RECORDS SUMMARY | 2024-07-16 16:15 | XMS_ITS ---
Author Organization [facility] Address [address] [place] [address] Care Team Providers Care Fortune Teller Name Role Phone Nany Antonio MD Primary Care Provider Lamin Hand [phone] REASON FOR VISIT screening, hx polyps Problems Problem Type SNOMED Code ICD Code Onset Dates Problem Status W/U Status Risk Notes Problem Diverticular disease of colon (463412383) Diverticulosis of large intestine without perforation or abscess without bleeding (K57.30) Active confirmed Encounters Encounter Location Date Provider Diagnosis [facility] Outpatient [address] [place], [place] [id number] 06/20/2023 Lamin Louise Encounter for scre ening colonoscopy Z12.11 ; Colon polyps K63.5 ; Diverticulosis of large intestine without perforation or abscess without bleeding K57.30 and Other hemorrhoids K64.8 Assessments Encounter Date Diagnosis (ICD Code) Assessment Notes Treatment Notes Treatment Clinical Notes Section Notes 06/20/2023 Encounter for screening colonoscopy (ICD-10 - Z12.11) 06/20/2023 Colon polyps (ICD-10 - K63.5) 06/20/2023 Diverticulosis of large intestine without perforation or abscess without bleeding (ICD-10 - K57.30) 06/20/2023 Other hemorrhoids (ICD-10 - K64.8) Plan Of Treatment No Information Progress Notes * RYAN FERRERAOB: 5 (78 yo F)Acc No.[id number]:06/20/2023 COLON WITH MAC Patient:?HOSEA FERRERA Provider:?Lamin Louise MD :1945???Age:77 Y???Sex:Female D ate:06/20/2023 Address:[address] [place], [place] [address] [place] [id number] Pcp:Nany Antonio MD Subjective: * Chief Complaints: * ???1. Screening, hx polyps. * Medical History:? Objective: * Vitals:? Assessment: * Assessment: 1.?Encounter for screening c olonoscopy - Z12.11 (Primary)???2.?Colon polyps - K63.5???3.?Diverticulosis of large intestine without perforation or abscess without bleeding - K57.30???4.?Other hemorrhoids - K64.8??? Plan: * Treatment: * Procedure Codes:?14588 COLON OSCOPY AND BIOPSY, Modifiers: PT , 0529F INTRVL 3+YRS PTS CLNSCP DOCD, Modifiers: 8P , 0528F RCMND FLW-UP 10 YRS DOCD, Modifiers: 1P * * The named appointment provid er may or may not be the originator of this progress note, and it is not deemed complete until electronically signed by the appointment provider. Sign off status: Pending * Provider:?Lamin Louise MD Date:? 024 Generated for Antelmo vazquez/Ladonna/eTviniciussmitting on:?07/16/2024 04:15 PM EDT
--- OUTSIDE RECORDS SUMMARY | 2024-07-16 16:15 | XMS_ITS | Patient Health Record ---
Author Organization [facility] Address [address] [place] [address] Care Team Providers Care Assistant Maintenance Manager Name Role Phone Nany Antonio MD Primary Care Provider Lamin Hand Unavailable [phone] Allergies Allergen (clinical drug ingredient) Drug/Non Drug Allergy documented on EMR Reaction Allergy Type Onset Date Status Prilosec Unknown Drug Allergy Active Quinidine Sulfate Unknown Drug Allergy Active Reason For Referral No [...] nausea for 1 days 03/26/2023 Active Sutab 0933-793-071 MG [address] dose [...] Once a day for 30 day(s) Active Problems Problem Type SNOMED Code ICD Code Onset Dates Problem Status W/U Status Risk Notes Problem 419461461 Colon cancer screening (Z12.11) Active confirmed Problem 620205083 History of adenomatous polyp of colon (Z86.010) Active confirmed Problem Diverticular disease of colon (758953183) Diverticulosis of large intestine without perforation or abscess without bleeding (K57.30) Active confirmed Problem 911058537340393 Preprocedural examination (Z01.818) Active confirmed Problem 497104177 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) Active confirmed Plan Of Treatment Future Test Test Name Order Date COLONOSCOPY 03/07/2012 COLONOSCOPY 10/10/2022 Insurance Providers Payer Name Payer Address Payer Phone Subscriber Number Group Number Insured Name Patient Relationship to Insured Coverage Start Date Coverage End Date [facility] [address] [place] [address] [id number] HOSEA FERRERA Self - patient is the insured MEDICARE OF [place] [address] [place] [address] [id number] HOSEA FERRERA Self - patient is the insured Medical (General) History Medical History History ICD Code Colonoscopy 03-18-2007-negatie Tubular adenoma removed in 2001 Denies PA,DM,CVA,Lung disease,renal dise ase Hypertension Hypothyroidism Atrial fibrillation-cardiac [facility] x [facility]--last one in 2006--she reports that she still has intermittent atrial fibrillation. She did have some transient atrial fibrillation around the time of her colonoscopy in 2011. Negative screening colonoscopy in 2 Surgical History Surgery Date(Month/Year) x 3 appendectomy Vaginal hysterectomy 2018
--- OUTSIDE RECORDS SUMMARY | 2024-07-16 16:15 | XMS_ITS ---
Author Organization [facility] Address [address] [place] [address] Care Team Providers Care Shipping/Receiving Manager Name Role Phone Nany Antonio MD Primary Care Provider Lamin Hand [phone] Medications Medication SIG (Take, Route, Fr equency, Duration) [...] nausea for 1 days 03/26/2023 Active Sutab 7498-982-565 MG [address] dose the day before and second dose 6 to 8 hours before the colonoscopy with 48 ounces of water with each set of 12 pills Orally Twice a day for 1 day(s) 03/22/2023 Active Encounters Encounter Location Date Provider Diagnosis [facility] [address] [place] [address] 03/18/2023 Lamin Louise Plan Of Treatment Medication Medication Name Sig Start Date Stop [...] for nausea for 1 days 03/26/2023 Sutab 9649-320-509 MG [address] dose the day before and second dose 6 to 8 hours before the colonoscopy with 48 ounces of water with each set of 12 pills Orally Twice a day for 1 day(s) 03/22/2023 Progress Notes * HELENA FERRERAEDOB: 5 (77 yo F)Acc No.[id number]:03/18/2023 Patient:?HOSEA FERRERA :1945???Age:77 Y???Sex:Female [facility] [place] [address] * Refills? Start Suprep Bowel Prep Solution, 1 kit, Orally, 1, Take 12 pills with 1,440ml of water(48 ounces), Twice, 1 days, Refills=0 Start Sutab Tablet, 8592-337-557 MG, Orally, 24, 12 tablets the first dose the day before and second dose 6 to 8 hours before the colonoscopy with 48 ounces of water with each set of 12 pills, Twice a day, 1 day(s), Refills=1 Start Ondansetron Tablet Disintegrating, 4 MG, Orally, 4, 1 tablet on the tongue and allow to dissolve, Take 30 to 60 minutes before starting the colonoscopy prep, and then repeat in 4 to 6 hours. Then use every 6 hours as needed for nausea, 1 days, Refills=0 * true * Date:? Generated for Antelmo vazquez/Ladonna/eTviniciussmitting on:?07/16/2024 04:15 PM EDT
== END 2024-07-16 14:26 | disposition home or self-care (01) ==
LOC: HO.HKA 13:47
PROVIDERS: PCP Internal Medicine; Referring Provider Internal Medicine; Visit Provider Internal Medicine Nephrology
DX: I10 Essential (primary) hypertension (principal)
CPT/HCPCS: 99204

== ENCOUNTER → 2024-07-16 13:46 | Outpatient (BNVA) | payer MEDICARE, SELFPAY | PROVIDERS: PCP Internal Medicine; Referring Provider Internal Medicine; Visit Provider Internal Medicine Nephrology | DX: I10 Essential (primary) hypertension (principal) | CPT/HCPCS: 99202 ==

== ENCOUNTER 2024-07-29 08:12 | Outpatient (REF) | payer MEDICARE, SELFPAY ==
--- OUTSIDE RECORDS SUMMARY | 2024-07-29 08:36 | XMS_ITS | Patient Health Record ---
Author Organization [facility] Address [address] [place] [address] Care Team Providers Care Airline Transport Pilot Name Role Phone Nany Antonio MD Primary Care Provider Lamin Hand Unavailable [phone] Allergies Allergen (clinical drug ingredient) Drug/Non Drug Allergy documented on EMR Reaction Allergy Type Onset Date Status Prilosec Unknown Drug Allergy Active quinidine Quinidine Sulfate Unknown Drug Allergy Active Reason [...] nausea for 1 days 03/26/2023 Active Sutab 2672-866-298 MG [address] fir [address] dose [...] Problem Status W/U Status Risk Notes Problem 652786895 Colon cancer screening (Z12.11) Active confirmed Problem 490964550 History of adenomatous polyp of colon (Z86.010) Active confirmed Problem Diverticular disease of colon (835348661) Diverticulosis of large intestine without perforation or abscess without bleeding (K57.30) Active confirmed Problem 694405507596779 Preprocedural examination (Z01.818) Active confirmed 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 [address] [place] [address] [id number] HOSEA FERRERA Self - patient is the insured MEDICARE OF [place] [address] [place] [address] [phone] [id number] HOSEA FERRERA Self - patient is the insured Medical (General) History Medical History History ICD Code Colonoscopy 03-18-2007-negatie Tubular adenoma removed in 2001 Denies [place],DM,CVA,Lung disease,renal dise ase Hypertension Hypothyroidism Atrial fibrillation-cardiac ablation x 3 at [facility]--last one in 2006--she reports that she still has intermittent atrial fibrillation. She did have some transient atrial fibrillation around the time of her colonoscopy in 2011. Negative screening colonoscopy in 2 Surgical History Surgery Date(Month/Year) x 3 appendectomy Vaginal hysterectomy 2018
--- OUTSIDE RECORDS SUMMARY | 2024-07-29 08:36 | XMS_ITS | Patient Health Record ---
Author [facility] Address [address] [facility] [place] [address] Care Team Providers Care Parking Station Attendant Name Role Phone Nany Antonio MD Primary Care Provider Erlin Cohn Unavailable [phone] Allergies Allergen (clinical drug ingredient) Drug/Non Drug [...] Status Risk Notes Problem Acquired hallux valgus (66478282) Hallux valgus (acquired), left foot (M20.12) Active confirmed Problem Localized, primary osteoarthritis of the ankle and/or foot (961888465) Primary osteoarthrit is, left ankle and foot (M19.072) Active confirmed Problem Acquired hallux valgus (29896794) Hallux valgus (acquired), right foot (M20.11) Active confirmed Problem Acquired hammer toe of right foot (2354427336374785) Other hammer toe(s) (acquired), right foot (M20.41) Active confirmed Problem Acquired hammer toe of left foot (2324700049269011) Other hammer toe(s) (acquired), left foot (M20.42) Active confirmed Plan Of Treatment Pending Test Test Name Order Date X ray : Foot, left 3V 07/21/2020 X ray : Foot, right 3V 07/21/2020 40734, J0702- INJECT or DRAIN, JOINT/BUR SA 12/21/2021 Insurance Providers Payer Name Payer Address Payer Phone Subscriber Number Group Number Insured Name Patient Relationship to Insured Coverage Start Date Coverage End Date [employer] [address] [place] [address] [phone] [id number] Lola Eubanks Self - patient is the insured Medical (General) History Medical History History ICD Code Atrial fibrillation High blood pressure Chicken pox Arthritis Cataracts thyroid Keratoma 701.1 Keratoma 729.5 Pain in Limb 754.61 Flat Foot, Congenital 735.0 Hallux Valgus 110.1 Onychomycosis Surgical History Surgery Date(Month/Year) tonsillectomy 194 appendectomy 1950 section 1965 section 1967 section 1970 hysterectomy 2018 cardiac ablasion - X3 [id number]
--- OUTSIDE RECORDS SUMMARY | 2024-07-29 08:37 | XMS_ITS ---
Author Organization [facility] Address [address] [place] [address] Care Team Providers Care Foreign Student Adviser Teacher Name Role Phone Nany Antonio MD Primary Care Provider Lamin Hand [phone] Medications Medication SIG (Take, Route, Fr equency, [...] nausea for 1 days 03/26/2023 Active Sutab 2705-353-566 MG [address] dose the day before and second dose 6 to 8 hours before the colonoscopy with 48 ounces of water with each set of 12 pills Orally Twice a day for 1 day(s) 03/22/2023 Active Encounters Encounter Location Date Provider Diagnosis [facility] [address] [place] [address] 03/18/2023 Lamin Louise Plan Of Treatment Medication [...] for nausea for 1 days 03/26/2023 Sutab 0118-624-305 MG [address] dose the day before and second dose 6 to 8 hours before the colonoscopy with 48 ounces of water with each set of 12 pills Orally Twice a day for 1 day(s) 03/22/2023 Progress Notes * HELENA FERRERAEDOB: 5 (77 yo F)Acc No.[id number]:03/18/2023 Patient:?HOSEA FERRERA :1945???Age:77 Y???Sex:Female [facility] [place] [address] * Refills? Start Suprep Bowel Prep Solution, 1 kit, Orally, 1, Take 12 pills with 1,440ml of water(48 ounces), Twice, 1 days, Refills=0 Start Sutab Tablet, 0913-419-412 MG, Orally, 24, 12 tablets the first [...] true * Date:? Generated for Antelmo vazquez/Ladonna/eTviniciussmitting on:?07/29/2024 08:37 AM EDT
--- OUTSIDE RECORDS SUMMARY | 2024-07-29 08:37 | XMS_ITS ---
Author Organization [facility] Address [address] [place] [address] Care Team Providers Care Institute Scientist Name Role Phone Nany Antonio MD Primary Care Provider Lamin Hand [phone] REASON FOR VISIT screening, hx polyps Problems Problem Type SNOMED Code ICD Code Onset Dates Problem Status W/U Status Risk Notes Problem Diverticular disease of colon (154271992) Diverticulosis of large intestine without perforation or abscess without bleeding (K57.30) Active confirmed Encounters Encounter Location Date Provider Diagnosis [facility] [place] [address] [place], [place] [phone] 06/20/2023 Lamin Louise Encounter for scre ening [...] * RYAN FERRERAOB: 5 (78 yo F)Acc No.[id number]:06/20/2023 COLON WITH MAC Patient:?HOSEA FERRERA Provider:?Lamin Louise MD :1945???Age:77 Y???Sex:Female D ate:06/20/2023 [facility] [place] [facility] Pcp:Nany Antonio MD Subjective: * Chief Complaints: * ???1. Screening, hx polyps. * Medical History:? Objective: * Vitals:? Assessment: * Assessment: 1.?Encounter for screening c olonoscopy - Z12.11 (Primary)???2.?Colon polyps - K63.5???3.?Diverticulosis of large intestine without perforation or abscess without bleeding - K57.30???4.?Other hemorrhoids - K64.8??? Plan: * Treatment: * Procedure Codes:?37037 COLON OSCOPY AND BIOPSY, Modifiers: PT , [...] MD Date:? 024 Generated for Antelmo vazquez/Ladonna/eTviniciussmitting on:?07/29/2024 08:36 AM EDT
[2024-07-29 10:14] LABS: MANUAL DIFF FLAG NO
[2024-07-29 10:24] LABS: Basophils Percent Auto 0.4 % (0-2); Eosinophils Absolute Auto 0.1 X10*3/uL (0.0-0.4); Eosinophils Percent Auto 1.8 % (0-4); Hemoglobin 13.8 g/dl (12.0-16.0); Imm Gran Abs Auto 0.01 X10*3/uL (0.00-0.03); Imm Gran Pct Auto 0.2 % (0.0-0.4); Lymphocytes Absolute Auto 1.3 X10*3/uL (1.2-4.9); Mean Corpuscular HGB Conc 33.7 g/dl (31.0-35.0); Mean Corpuscular Hemoglobin 30.6 pg (27.0-33.0); Mean Corpuscular Volume 90.9 fL (80.0-98.0); Monocytes Absolute Auto 0.6 X10*3/uL (0.1-1.2); Monocytes Percent Auto 10.8 % (2-11); Neutrophils Absolute Auto 3.4 x10*3/uL (2.0-8.3); Neutrophils Percent Auto 62.8 % (45-73); Platelet Count 187 X10*3/uL (160-400); Red Blood Count 4.51 X10*6/uL (4.20-5.50); Red Cell Distribution Width 12.8 % (11.0-16.0); White Blood Count 5.5 X10*3/uL (4.8-10.8)
[2024-07-29 11:07] LABS: Alanine Aminotransferase 13 U/L (0-31); Albumin Level 3.7 g/dL (3.5-5.0); Anion Gap 9 (12-20); Aspartate Amino Transferase 28 U/L (5-31); Bilirubin Total 0.8 mg/dL (0.0-1.0); Blood Urea Nitrogen 17 mg/dL (9-16); Calcium 9.6 mg/dL (8.4-10.2); Carbon Dioxide 29 mmol/L (22-29); Chloride 107 mmol/L (96-108); Cholesterol 163 mg/dL (<200); Estimated Glomerular Filt Rate > 60; Glucose Fasting 82 mg/dL (60-99); HDL Cholesterol 42 mg/dL (>40); LDL Cholesterol Calculated 94 mg/dL (<100); Potassium 4.1 mmol/L (3.3-5.1); Sodium 141 mmol/L (135-145); Total Protein 6.5 g/dL (6.5-8.0); Triglycerides 136 mg/dL (<150)
[2024-07-29 11:31] LABS: TSH reflex Free T4 2.08 uIU/mL (0.32-4.0); Vitamin D 25-OH Total 62.1 ng/mL (>30)
[2024-07-29 11:40] LABS: Alkaline Phosphatase 78 U/L (39-117)
== END 2024-07-29 08:13 | disposition home or self-care (01) ==
LOC: HO.HMGCLDS 08:12
PROVIDERS: PCP Internal Medicine; Visit Provider Internal Medicine
DX: I10 Essential (primary) hypertension (principal)
CPT/HCPCS: 36415; 80053; 80061; 82306; 84443; 85025

== ENCOUNTER 2024-07-29 08:50 | Outpatient (AMB) | payer MEDICARE, SELFPAY ==
[2024-07-29 08:52] VITALS: BP 136/80; PULSE 61; RESP 18; TEMP 36.4; O2SAT 96; BMI 25.1
--- NOTE | 2024-07-29 08:52 | AM.OFFVISMDC ---
Intake Vital Signs 07/29/24 08:52 Height 5 ft 4 in Weight 146 lb BMI 25.1 BP 136/80 Blood Pressure Location Lt brachial Position Sitting Respiration 18 Pulse 61 Pulse Source Pulse Oximeter Temp 97.6 F Temp Source Oral Pulse Oximetry (%) 96 Oxygen Delivery Method Room Air Intake Visit Reasons: JOHNATHON G0439 - see comments Allergies omeprazole [From PRILOSEC] Allergy (Unknown, Verified 07/29/24 08:55) NAUSEA quinidine [QUINIDINE] Allergy (Unknown, Verified 07/29/24 08:55) NAUSEA Do you need a note to return to daycare/school/sports/work: No HPI JOHNATHON G0439 - see comments HPI Details Initiated the conversation about Advanced Directives. Advanced Directives help? patients prepare for current and future decisions about their medical treatment? and place of care. Discussed with patient that it is a process where a patients? current condition and prognosis are reviewed, their wishes for information? regarding their illness are elicited, and likely medical dilemmas are presented? and options discussed. The form can be amended as needed, reviewed yearly and? make changes as needed IPPE/AWV ? year old presents? for her ? Annual? Wellness Visit, initial visit.? Medical / Social History Reviewed? Past Medical History ?Yes? . ? [place]? of Care / Care Team list updated ?Yes . ? Surgical/Hospitalization? History ?Yes . ? Current Medications? (including OTC and supplements) ?Yes . ? Family History ?Yes? . ? Tobacco? Control form ?Yes . ? AUDIT-C (Alcohol use) form? ?Yes . ? Illicit drug use in Social? History ?Yes . ? Current diagnosis of? depression? ?No ? Appropriate PHQ2/PHQ9? completed ?Yes . ? Data entered by ?Medical? Security System Installer and reviewed by provider ? Fall Risk ? Fall? History? Have you had any falls with? injury in the past year? ?No . ? Have you had two or more? falls in the past year? ?No . ? Fall Risk Assessment: ?No? falls in the past year . ? HRA filled out by? the patient, reviewed by Provider and scanned. ? IPPE/AWV ? Balance? Romberg? ?Yes . ? Tandem? walk ?Yes . ? Walk and? Turn ?Yes . ? Rise from? sit to stand ?Yes . ?Vision? Corrective? lens ?Yes ? Vision? screen ? Up-to-date, has an appointment [] for vision? screening and glaucoma screening ?Hearing? Whisper? test ?pass .? Initiated the conversation about Advanced Directives. Advanced Directives help? patients prepare for current and future decisions about their medical treatment? and place of care. Discussed with patient that it is a process where a patients? current condition and prognosis are reviewed, their wishes for information? regarding their illness are elicited, and likely medical dilemmas are presented? and options discussed. The form can be amended as needed, reviewed yearly and? make changes as needed Written? Plan?Completed. See Patient? Documents. [facility] Medical History Asymptomatic bacteriuria Annual physical exam Skin rash Essential hypertension Paroxysmal atrial fibrillation Internal hemorrhoid Tubular adenoma Hypothyroidism HTN (hypertension) Surgical History History of Hx of hysterectomy Hx of appendectomy H/O colonoscopy Hx of arthroscopic knee surgery Status post endovenous radiofrequency ablation (RFA) of saphenous vein History of radiofrequency ablation (RFA) procedure for cardiac arrhythmia Family History Mother No problems noted. Father No problems noted. Daughter No problems noted. Son No problems noted. Son No problems noted. Social History Housing: House Alcohol intake: never Patient Tobacco Use Status: Never used Tobacco e-Cigarette/Vaping Use: Never Used Current occupational status: retired Questionnaire Medicare Wellness Checkup What [age] What gender do you identify with?: female During the past 4 weeks, how much have you been bothered by emotional problems such as feeling anxious, depressed, irritable, sad or downhearted, and blue?: slightly During the past 4 weeks, has your physical & emotional health limited your social activities with family, friends, neighbors, or groups?: not at all During the past 4 weeks, how much bodily pain have you generally had?: very mild pain During the past 4 weeks, was someone available to help you if you needed & wanted help?: yes, as much as I wanted During the past 4 weeks, what was the hardest physical activity you could do for at least 2 minutes?: very heavy Can you get to places out of walking distance without help? (For eg., can you travel alone on buses, taxis or drive your car?): Yes Can you go shopping for groceries or clothes without someone's help?: Yes Can you prepare your own meals?: Yes Can you do your housework without help?: Yes Because of any health problems, do you need the help of another person with your personal care needs such as eating, bathing, dressing or getting around the house?: No Can you handle your own money without help?: Yes During the past 4 weeks, how would you rate your health in general?: very good During the past 4 weeks how have things been going for you?: very well; could hardly better Are you having difficulties driving your car?: no Do you always fasten your seat belt when you are in a car?: yes, usually During past 4 weeks, have you been bothered by the following: never: Sexual problems?, Trouble eating well?, Teeth or denture problems? and Problems using the telephone?, seldom: Tiredness or fatigue? and sometimes: Falling or dizzy when standing up Have you fallen 2 or more times in the past year?: No Are you afraid of falling?: No Are you a smoker?: no During the past 4 weeks, how many drinks of wine, beer, or other alcoholic beverages did you have?: no alcohol at all Do you exercise for about 20 minutes 3 or more times a week?: yes, some of the time Have you been given information to help with the following?: no: Hazards in your house that might hurt you? and no: Keeping track of your medications? How often do you have trouble taking medicines the way you have been told to take them?: I always take medicine as prescribed How confident are you that you can control & manage most of your health problems?: very confident What is your race?: White Mini Mental State Exam (MMSE) Orientation What is the (year) (season) (date) (day) (month)?: year, season, date, day and month Where are we (state) (county) (town or city) (hospital) (floor)?: state, county, town or city, hospital/clinic and floor Registration Name of 3 unrelated objects clearly and slowly, then ask patient to repeat all 3 of them. (1st repeat determines score. Make sure they can repeat all three): object 1, object 2 and object 3 Attention & Calculation (CHOOSE ONE) Spell WORLD backwards (DLROW): 5 letters Recall Ask patient to repeat the 3 items from question #3.: object 1, object 2 and object 3 Language Show patient a wristwatch & ask what it is. Repeat for pencil.: watch and pencil Ask the patient to repeat the phrase 'No ifs, ands, or buts' after you.: correct Ask the patient to 'take a piece of paper with their right hand' 'fold paper in half' 'place paper on floor': take paper in right hand, fold paper in half and place paper on floor Print the sentence 'CLOSE YOUR EYES' on a piece. If patient actually closes eyes then score.: followed written direction Give patient a blank piece of paper & ask to write a sentence. Score if it contains a noun & verb.: sentence contains subject and verb Score Score: 29 PHQ-9 Over the last 2 weeks, how often have you been bothered by any of the following problems? 1. Little interest or pleasure in doing things: not at all 2. Feeling down, depressed, or hopeless: not at all 3. Trouble falling or staying asleep, or sleeping too much: not at all 4. Feeling tired or having little energy: not at all 5. Poor appetite or overeating: not at all 6. Feeling bad about yourself - or that you are a failure or have let yourself or your family down: not at all 7. Trouble concentrating on things, such as reading the newspaper or watching television: not at all 8. Moving or speaking so slowly that other people could have noticed. Or the opposite - being so fidgety or restless that you have been moving around a lot more than usual: not at all 9. Thoughts that you would be better off or of hurting yourself in some way: not at all Total score: 0 Depression Screening Interpretation: Negative Depression Screening Done: Yes 69078 - PHQ-9 Billing: Yes Source: Developed by Drs. Lamin Charles, Rosalina Nava, Cyrus Goode and colleagues, with an educational lambert from [employer]. Review of Systems Const All systems reviewed & are unremarkable except as noted in HPI and below Eyes Reports no additional complaints ENT Reports no additional complaints Card Reports no additional complaints Resp Reports no additional complaints GI Reports no additional complaints Reports no additional complaints Physical Exam Vital Signs: Last Vital Signs Temp 97.6 F 07/29/24 08:52 Pulse 61 07/29/24 08:52 Resp 18 07/29/24 08:52 BP 136/80 07/29/24 08:52 Pulse Ox 96 07/29/24 08:52 Oxygen Delivery Method Room Air 07/29/24 08:52 BMI result Body Mass Index 25.1 Const General: no acute distress HEENT Head: Yes normal to inspection Ears: hearing grossly normal bilaterally Eyes General: appearance normal, both eyes and all related structures Neck Neck: Yes no lymphadenopathy and Yes supple Resp Effort & Inspection: normal respiratory effort Auscultation: clear to auscultation bilaterally Cardio Rhythm: regular rhythm Heart sounds: S1 normal heart sound present and S2 normal heart sound present GI Inspection: Yes normal to inspection Palpation (GI): Soft to palpation Percussion: Yes normal to percussion Auscultation: normal bowel sounds Extrem General: Yes no clubbing, cyanosis or edema Assessment & Plan Assessment & Plan (1) Annual physical exam: Code(s): Z00.00 - Encounter for general adult medical examination without abnormal findings Plan: Well-balanced diet regular physical activity stress management discussed with the patient. (2) Essential hypertension: Comment: Managed by cardiology and nephrology Code(s): I10 - Essential (primary) hypertension Plan: Continue current medications regular physical activity stress management discussed with the patient (3) Paroxysmal atrial fibrillation: Code(s): I48.0 - Paroxysmal atrial fibrillation Plan: Anticoagulated on Eliquis and rate controlled on atenolol (4) Vitamin D deficiency: Code(s): E55.9 - Vitamin D deficiency, unspecified Plan: Continue vitamin-D. Orders: Orders Comprehensive [place]. Panel Fast Today I10 - Essential (primary) hypertension Complete Blood Count Auto Diff 1 Year E55.9 - Vitamin D deficiency, unspecified, I10 - Essential (primary) hypertension, I48.0 - Paroxysmal atrial fibrillation, Z00.00 - Encounter for general adult medical examination without abnormal findings Comprehensive [place]. Panel Fast 1 Year E55.9 - Vitamin D deficiency, unspecified, I10 - Essential (primary) hypertension, I48.0 - Paroxysmal atrial fibrillation, Z00.00 - Encounter for general adult medical examination without abnormal findings Lipid Panel 1 Year E55.9 - Vitamin D deficiency, unspecified, I10 - Essential (primary) hypertension, I48.0 - Paroxysmal atrial fibrillation, Z00.00 - Encounter for general adult medical examination without abnormal findings Vitamin D 25-OH Total 1 Year E55.9 - Vitamin D deficiency, unspecified, I10 - Essential (primary) hypertension, I48.0 - Paroxysmal atrial fibrillation, Z00.00 - Encounter for general adult medical examination without abnormal findings TSH reflex Free T4 1 Year E55.9 - Vitamin D deficiency, unspecified, I10 - Essential (primary) hypertension, I48.0 - Paroxysmal atrial fibrillation, Z00.00 - Encounter for general adult medical examination without abnormal findings Quality Reporting (2019) Depression/Bipolar (159/160/161/177) PHQ-9: Total score: 0 Coding Level of Care Code Medicare Subsequent (G0439) Diagnoses Annual physical exam Z00.00 Essential hypertension I10 Paroxysmal atrial fibrillation I48.0 Vitamin D deficiency E55.9 CPT Codes Advance Care Planning - Advance Care Planning discussion: On file, no changes ([id number]) Advance Care Planning - Time spent: 1-15 minutes, on File ([id number]) Additional Codes PHQ-9 - 83179 - PHQ-9 Billing: Yes ([id number]) Advance Care Planning Advance Care Planning discussion: On file, no changes Forms completed: Health Care Proxy Time spent: 1-15 minutes, on File Did not discuss due to Cultural/Spiritual beliefs: Yes
== END 2024-07-29 09:27 | disposition home or self-care (01) ==
LOC: HO.HMCC 08:51
PROVIDERS: PCP Internal Medicine; Visit Provider Internal Medicine
DX: Z00.00 Encounter for general adult medical examination without abnormal findings (principal); I10 Essential (primary) hypertension; I48.0 Paroxysmal atrial fibrillation; E55.9 Vitamin D deficiency, unspecified

== ENCOUNTER 2024-08-06 09:05 | Outpatient (REF) | payer MEDICARE, SELFPAY ==
--- NOTE | ~2024-08-06 | XR_ITS ---
EXAMINATION: XR HIP 2 OR MORE VIEWS LEFT HISTORY: M25.552 - Pain in left hip COMPARISON: There are no prior studies for comparison. FINDINGS: Two views of the left hip are submitted. Osseous mineralization is normal. There is no fracture or dislocation. There is mild joint space narrowing. The soft tissues are unremarkable. XR/XR hip LT min 2V IMPRESSION: Mild joint space narrowing. Electronically signed by: Lamin Albarado MD 08/06/2024 03:35 PM EDT
--- OUTSIDE RECORDS SUMMARY | 2024-08-06 09:58 | XMS_ITS | Patient Health Record ---
Author Organization [facility] Address [address] [place] [address] Care Team Providers Care Instructor Of Spanish Name Role Phone Nany Antonio MD Primary Care Provider Erlin Cohn Unavailable [phone] Allergies Allergen (clinical drug ingredient) Drug/Non Drug [...] Status Risk Notes Problem Acquired hallux valgus (87974464) Hallux valgus (acquired), left foot (M20.12) Active confirmed Problem Localized, primary osteoarthritis of the ankle and/or foot (470278975) Primary osteoarthrit is, left ankle and foot (M19.072) Active confirmed Problem Acquired hallux valgus (97703010) Hallux valgus (acquired), right foot (M20.11) Active confirmed Problem Acquired hammer toe of right foot (9069756153403038) Other hammer toe(s) (acquired), right foot (M20.41) Active confirmed Problem Acquired hammer toe of left foot (2858416588989796) Other hammer toe(s) (acquired), left foot (M20.42) Active confirmed Plan Of Treatment Pending Test Test Name Order Date X ray : Foot, left 3V 07/21/2020 X ray : Foot, right 3V 07/21/2020 74740, J0702- INJECT or DRAIN, JOINT/BUR SA 12/21/2021 Insurance Providers Payer Name Payer Address Payer Phone Subscriber Number Group Number Insured Name Patient Relationship to Insured Coverage Start Date Coverage End Date [employer] [place] [employer]vantage [address] [place] [address] [id number] Lola Eubanks Self - patient is the insured Medical (General) History Medical History History ICD Code Atrial fibrillation High blood pressure Chicken pox Arthritis Cataracts thyroid Keratoma 701.1 Keratoma 729.5 Pain in Limb 754.61 Flat Foot, Congenital 735.0 Hallux Valgus 110.1 Onychomycosis Surgical History Surgery Date(Month/Year) tonsillectomy 194 appendectomy 1950 section 1965 section 1967 section 1970 hysterectomy 2018 cardiac ablasion - X3 6922-3421
--- OUTSIDE RECORDS SUMMARY | 2024-08-06 09:58 | XMS_ITS ---
Author Organization [facility] Address [address] [place] [address] Care Team Providers Care Senior Software Architect Name Role Phone Nany Antonio MD Primary Care Provider Lamin Hand [phone] REASON FOR VISIT screening, hx polyps Problems Problem Type SNOMED Code ICD Code Onset Dates Problem Status W/U Status Risk Notes Problem Diverticular disease of colon (552837522) Diverticulosis of large intestine without perforation or abscess without bleeding (K57.30) Active confirmed Encounters Encounter Location Date Provider Diagnosis [facility] [address], [place] [phone] 06/20/2023 Lamin Louise Encounter for scre ening [...] * RYAN FERRERAOB: 5 (78 yo F)Acc No.[id number]:06/20/2023 COLON WITH MAC Patient:?HOSEA FERRERA Provider:?Lamin Louise MD :1945???Age:77 Y???Sex:Female D ate:06/20/2023 [facility] [facility] [place] Pcp:Nany Antonio MD Subjective: * Chief Complaints: * ???1. Screening, hx polyps. * Medical History:? Objective: * Vitals:? Assessment: * Assessment: 1.?Encounter for screening c olonoscopy - Z12.11 (Primary)???2.?Colon polyps - K63.5???3.?Diverticulosis of large intestine without perforation or abscess without bleeding - K57.30???4.?Other hemorrhoids - K64.8??? Plan: * Treatment: * Procedure Codes:?26789 COLON OSCOPY AND BIOPSY, Modifiers: PT , [...] MD Date:? 024 Generated for Antelmo vazquez/Ladonna/eTviniciussmitting on:?08/06/2024 09:58 AM EDT
--- OUTSIDE RECORDS SUMMARY | 2024-08-06 09:58 | XMS_ITS | Patient Health Record ---
Author Organization [facility] Address [address] [place] [address] Care Team Providers Care Gem Technician Name Role Phone Nany Antonio MD Primary Care Provider Lamin Hand Unavailable [phone] Allergies Allergen (clinical drug ingredient) Drug/Non Drug [...] nausea for 1 days 03/26/2023 Active Sutab 7238-521-041 MG [address] dose [...] Problem Status W/U Status Risk Notes Problem 232020669 Colon cancer screening (Z12.11) Active confirmed Problem 527904682 History of adenomatous polyp of colon (Z86.010) Active confirmed Problem Diverticular disease of colon (906029564) Diverticulosis of large intestine without perforation or abscess without bleeding (K57.30) Active confirmed Problem 324031219238663 Preprocedural examination (Z01.818) Active confirmed Problem 158915920 rat exterminator curren t use of anticoagulant (Z79.01) Active confirmed Plan Of Treatment Future Test Test Name Order Date COLONOSCOPY 03/07/2012 COLONOSCOPY 10/10/2022 Insurance Providers Payer Name Payer Address Payer Phone Subscriber Number Group Number Insured Name Patient Relationship to Insured Coverage Start Date Coverage End Date [facility] [address] [place] [address] [phone] [id number] HOSEA FERRERA Self - patient is the insured MEDICARE OF [place] [address] [place] [address] [id number] HOSEA FERRERA Self - patient is the insured Medical (General) History Medical History History ICD Code Colonoscopy 03-18-2007-negatie Tubular adenoma removed in 2001 Denies AL,DM,CVA,Lung disease,renal dise ase Hypertension Hypothyroidism Atrial fibrillation-cardiac ablation x 3 at [facility]--last one in 2006--she reports that she still has intermittent atrial fibrillation. She did have some transient atrial fibrillation around the time of her colonoscopy in 2011. Negative screening colonoscopy in 2 Surgical History Surgery Date(Month/Year) x 3 appendectomy Vaginal hysterectomy 2018
--- OUTSIDE RECORDS SUMMARY | 2024-08-06 09:58 | XMS_ITS ---
Author Organization [facility] Address [address] [place] [address] Care Team Providers Care Garage Door Hanger Name Role Phone Nany Antonio MD Primary Care Provider Lamin Hand [phone] Medications Medication SIG (Take, Route, Fr equency, [...] nausea for 1 days 03/26/2023 Active Sutab 5759-603-706 MG [address] dose the day before and second dose 6 to 8 hours before the colonoscopy with 48 ounces of water with each set of 12 pills Orally Twice a day for 1 day(s) 03/22/2023 Active Encounters Encounter Location Date Provider Diagnosis [facility] [address] [place] [address] 03/18/2023 Lamin Louise Plan Of Treatment Medication [...] for nausea for 1 days 03/26/2023 Sutab 5819-112-553 MG [address] dose the day before and second dose 6 to 8 hours before the colonoscopy with 48 ounces of water with each set of 12 pills Orally Twice a day for 1 day(s) 03/22/2023 Progress Notes * HELENA FERRERAEDOB: 5 (77 yo F)Acc No.[id number]:03/18/2023 Patient:?HOSEA FERRERA :1945???Age:77 Y???Sex:Female [facility], [facility] [place] [address] * Refills? Start Suprep Bowel Prep Solution, 1 kit, Orally, 1, Take 12 pills with 1,440ml of water(48 ounces), Twice, 1 days, Refills=0 Start Sutab Tablet, 9850-646-443 MG, Orally, 24, 12 tablets the first [...] true * Date:? Generated for Antelmo vazquez/Ladonna/eTviniciussmitting on:?08/06/2024 09:58 AM EDT
== END 2024-08-06 09:06 | disposition home or self-care (01) ==
LOC: HO.HMGCX 09:05
PROVIDERS: PCP Internal Medicine; Visit Provider Internal Medicine
DX: M25.552 Pain in left hip (principal)
CPT/HCPCS: 73502

== ENCOUNTER → 2024-08-06 09:11 | Outpatient (BNV) | payer MEDICARE, SELFPAY | PROVIDERS: PCP Internal Medicine; Visit Provider Radiology Diagnostic Radiology | DX: M25.552 Pain in left hip (principal) | CPT/HCPCS: 73502 ==

== ENCOUNTER 2024-08-15 15:26 | Outpatient (AMB) | payer MEDICARE, SELFPAY ==
--- OUTSIDE RECORDS SUMMARY | 2024-08-15 15:29 | XMS_ITS ---
Author Organization [facility] Address [address] [place] [address] Care Team Providers Care Director Operations Broadcast Name Role Phone Nany Antonio MD Primary Care Provider Lamin Hand [phone] REASON FOR VISIT screening, hx polyps Problems Problem Type SNOMED Code ICD Code Onset Dates Problem Status W/U Status Risk Notes Problem Diverticular disease of colon (119891561) Diverticulosis of large intestine without perforation or abscess without bleeding (K57.30) Active confirmed Encounters Encounter Location Date Provider Diagnosis [facility] Outpatient [address] [place], [place] [id number] 06/20/2023 Lamin Louise Encounter for scre ening [...] * RYAN FERRERAOB: 5 (78 yo F)Acc No.[id number]:06/20/2023 COLON WITH MAC Patient:?HOSEA FERRERA Provider:?Lamin Louise MD :1945???Age:77 Y???Sex:Female D ate:06/20/2023 Address:[address] [place], [place] [address] [place] [facility] Pcp:Nany Antonio MD Subjective: * Chief Complaints: * ???1. Screening, hx polyps. * Medical History:? Objective: * Vitals:? Assessment: * Assessment: 1.?Encounter for screening c olonoscopy - Z12.11 (Primary)???2.?Colon polyps - K63.5???3.?Diverticulosis of large intestine without perforation or abscess without bleeding - K57.30???4.?Other hemorrhoids - K64.8??? Plan: * Treatment: * Procedure Codes:?33692 COLON OSCOPY AND BIOPSY, Modifiers: PT , [...] MD Date:? 024 Generated for Antelmo vazquez/Ladonna/eTviniciussmitting on:?08/15/2024 03:29 PM EDT
--- OUTSIDE RECORDS SUMMARY | 2024-08-15 15:29 | XMS_ITS | Patient Health Record ---
Author [facility] Address [address] [facility] [place] [address] Care Team Providers Care Concrete Stone Finishing Supervisor Name Role Phone Nany Antonio MD Primary Care Provider Erlin Cohn Unavailable [phone] Allergies Allergen (clinical drug ingredient) Drug/Non Drug [...] Status Risk Notes Problem Acquired hallux valgus (08872355) Hallux valgus (acquired), left foot (M20.12) Active confirmed Problem Localized, primary osteoarthritis of the ankle and/or foot (978982572) Primary osteoarthrit is, left ankle and foot (M19.072) Active confirmed Problem Acquired hallux valgus (43071858) Hallux valgus (acquired), right foot (M20.11) Active confirmed Problem Acquired hammer toe of right foot (9501610921062457) Other hammer toe(s) (acquired), right foot (M20.41) Active confirmed Problem Acquired hammer toe of left foot (8759851693622174) Other hammer toe(s) (acquired), left foot (M20.42) Active confirmed Plan Of Treatment Pending Test Test Name Order Date X ray : Foot, left 3V 07/21/2020 X ray : Foot, right 3V 07/21/2020 03288, J0702- INJECT or DRAIN, JOINT/BUR SA 12/21/2021 Insurance Providers Payer Name Payer Address Payer Phone Subscriber Number Group Number Insured Name Patient Relationship to Insured Coverage Start Date Coverage End Date [employer] Medicare Advantage [address] [place] [address] [id number] Lola Eubanks Self - patient is the insured Medical (General) History Medical History History ICD Code Atrial fibrillation High blood pressure Chicken pox Arthritis Cataracts thyroid Keratoma 701.1 Keratoma 729.5 Pain in Limb 754.61 Flat Foot, Congenital 735.0 Hallux Valgus 110.1 Onychomycosis Surgical History Surgery Date(Month/Year) tonsillectomy 194 appendectomy 1950 section 1965 section 1967 section 1970 hysterectomy 2018 cardiac ablasion - X3 [id number]
--- OUTSIDE RECORDS SUMMARY | 2024-08-15 15:29 | XMS_ITS ---
Author Organization [facility] Address [address] [place] [address] Care Team Providers Care Economics Consultant Name Role Phone Nany Antonio MD Primary Care Provider Lamin Hand [phone] Medications Medication SIG (Take, Route, Fr equency, [...] nausea for 1 days 03/26/2023 Active Sutab 7187-841-710 MG [address] dose the day before and second dose 6 to 8 hours before the colonoscopy with 48 ounces of water with each set of 12 pills Orally Twice a day for 1 day(s) 03/22/2023 Active Encounters Encounter Location Date Provider Diagnosis [facility] [address] [place] [address] 03/18/2023 Lamin Louise Plan Of Treatment Medication [...] for nausea for 1 days 03/26/2023 Sutab 5787-533-717 MG [address] dose the day before and second dose 6 to 8 hours before the colonoscopy with 48 ounces of water with each set of 12 pills Orally Twice a day for 1 day(s) 03/22/2023 Progress Notes * HELENA FERRERAEDOB: 5 (77 yo F)Acc No.[id number]:03/18/2023 Patient:?HOSEA FERRERA :1945???Age:77 Y???Sex:Female [facility] [place] [address] * Refills? Start Suprep Bowel Prep Solution, 1 kit, Orally, 1, Take 12 pills with 1,440ml of water(48 ounces), Twice, 1 days, Refills=0 Start Sutab Tablet, 6378-687-305 MG, Orally, 24, 12 tablets the first [...] true * Date:? Generated for Antelmo vazquez/Ladonna/eTviniciussmitting on:?08/15/2024 03:29 PM EDT
--- OUTSIDE RECORDS SUMMARY | 2024-08-15 15:29 | XMS_ITS | Patient Health Record ---
Author Organization [facility] Address [address] [place] [address] Care Team Providers Care Apartment Leasing Agent Name Role Phone Nany Antonio MD Primary Care Provider Lamin Hand Unavailable [phone] Allergies Allergen (clinical drug ingredient) Drug/Non Drug [...] nausea for 1 days 03/26/2023 Active Sutab 5868-131-400 MG [address] dose [...] Problem Status W/U Status Risk Notes Problem 418717194 Colon cancer screening (Z12.11) Active confirmed Problem 733342607 History of adenomatous polyp of colon (Z86.010) Active confirmed Problem Diverticular disease of colon (264826259) Diverticulosis of large intestine without perforation or abscess without bleeding (K57.30) Active confirmed Problem 553442307675891 Preprocedural examination (Z01.818) Active confirmed Problem 551400385 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 (Z79.01) Active confirmed Plan Of Treatment Future Test Test Name Order Date COLONOSCOPY 03/07/2012 COLONOSCOPY 10/10/2022 Insurance Providers Payer Name Payer Address Payer Phone Subscriber Number Group Number Insured Name Patient Relationship to Insured Coverage Start Date Coverage End Date [facility] [address] [place] [address] [phone] [id number] HOSEA FERRERA Self - patient is the insured MEDICARE OF [place] [address] [place] [address] [id number] HOSEA FERRERA Self - patient is the insured Medical (General) History Medical History History ICD Code Colonoscopy 03-18-2007-negatie Tubular adenoma removed in 2001 Denies [place],DM,CVA,Lung disease,renal dise ase Hypertension Hypothyroidism Atrial fibrillation-cardiac ablation x [address] [facility]--last one in 2006--she reports that she still has intermittent atrial fibrillation. She did have some transient atrial fibrillation around the time of her colonoscopy in 2011. Negative screening colonoscopy in 2 Surgical History Surgery Date(Month/Year) x 3 appendectomy Vaginal hysterectomy 2018
[2024-08-15 15:34] VITALS: BP 140/50; PULSE 55; O2SAT 99; BMI 25.1
--- NOTE | 2024-08-15 15:34 | HO.NEPHOV_ITS ---
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 She has H/O atrial fibrillation. She had taken various medications over many decades for AFib and hypertension. In the past, she claimed to have side effects from very high dose of beta-blockers & was switched to diltiazem. There were some side effects from this as well and a switch was made to Atenolol. She is also on ARB/HCTZ. Her blood pressures have been running high lately especially in the mornings. She has tried amlodipine to her routine medication regimen but she feels that sometimes her blood pressure drops too much. She has normal sodium diet and denies any CAD, CVA, CHF , carotid stenosis or PAD. She has history of radiofrequency ablation (RFA) for cardiac arrhythmia. She denies any H/O hypokalemia, hypercalcemia, pre eclampsia, BOONE, renal dysfunction, uncontrolled thyroid disorders. She has been taking 2.5 mg Amlodipine to her Atenolol and ARB/HCTZ but will take 5 mg if her systolic BP goes over 150. She recently had a Doppler of renal arteries which showed no evidence of renal artery stenosis but showed borderline elevated resistive indices bilaterally. She did not have any other systemic complaints at the time of this office visit. [facility] Medical History Asymptomatic bacteriuria Annual physical exam Skin rash Essential hypertension Paroxysmal atrial fibrillation Internal hemorrhoid Tubular adenoma Hypothyroidism HTN (hypertension) Surgical History History of Hx of hysterectomy Hx of appendectomy H/O colonoscopy Hx of arthroscopic knee surgery Status post endovenous radiofrequency ablation (RFA) of saphenous vein History of radiofrequency ablation (RFA) procedure for cardiac arrhythmia Family History Mother No problems noted. Father No problems noted. Daughter No problems noted. Son No problems noted. Son No problems noted. Social History Housing: House Alcohol intake: never Patient Tobacco Use Status: Never used Tobacco e-Cigarette/Vaping Use: Never Used Current occupational status: retired Review of Systems Const All systems reviewed & are unremarkable except as noted in HPI and below Physical Exam Vital Signs: Last Vital Signs Pulse 55 08/15/24 15:34 BP 140/50 H 08/15/24 15:34 Pulse Ox 99 08/15/24 15:34 Oxygen Delivery Method Room Air 08/15/24 15:34 BMI result Body Mass Index 25.1 Results Reviewed Nephrology Results: Hgb 13.8 g/dl (12.0-16.0) 07/29/24 WBC 5.5 X10*3/uL (4.8-10.8) 07/29/24 Plt Count 187 X10*3/uL (160-400) 07/29/24 Sodium 141 mmol/L (135-145) 07/29/24 Potassium 4.1 mmol/L (3.3-5.1) 07/29/24 Chloride 107 mmol/L (96-108) 07/29/24 Carbon Dioxide 29 mmol/L (22-29) 07/29/24 BUN 17 mg/dL (9-16) H 07/29/24 Creatinine 0.74 mg/dL (0.5-1.4) 07/29/24 Calcium 9.6 mg/dL (8.4-10.2) 07/29/24 Renal US 07/02/24 Assessment & Plan Assessment & Plan (1) Essential hypertension: Comment: Managed by cardiology and nephrology Code(s): I10 - Essential (primary) hypertension Category: Medical Plan Continue irbesartan/hydrochlorothiazide AM and Atenolol afternoon; Increased Amlodipine to 7.5 mg which I may increase to 10 mg daily Doppler of renal arteries which showed no evidence of renal artery stenosis but showed borderline elevated resistive indices bilaterally Will do a 24 hour BPM after a month with this new regimen, soon , if continues to have BP lability; Shall consider spironolactone, if needed. Given there is a blood pressure difference between the 2 upper extremities, most likely there is some vascular disease Needs to be on low sodium diet; All these explained to her and ; Answered all questions; F/U given Medications: Changed From amlodipine PO DAILY To amlodipine 7.5 mg (1.5 x 5 mg) PO DAILY 90 days 135 tabs 3RF Coding Level of Care Code Est Pt Level 4 (63762) Diagnoses Essential hypertension I10
== END 2024-08-15 16:10 | disposition home or self-care (01) ==
LOC: HO.HKA 15:27
PROVIDERS: PCP Internal Medicine; Visit Provider Internal Medicine Nephrology
DX: I10 Essential (primary) hypertension (principal)
CPT/HCPCS: 99214

== ENCOUNTER → 2024-08-15 15:26 | Outpatient (BNVA) | payer MEDICARE, SELFPAY | PROVIDERS: PCP Internal Medicine; Visit Provider Internal Medicine Nephrology | DX: I10 Essential (primary) hypertension (principal) | CPT/HCPCS: 99212 ==

== ENCOUNTER 2024-08-26 08:59 | Outpatient (REF) | payer MEDICARE, SELFPAY ==
--- OUTSIDE RECORDS SUMMARY | 2024-08-26 09:30 | XMS_ITS | Patient Health Record ---
Author [facility] Nick Address [address] [facility] [place] [address] Care Team Providers Care Floral Clerk Name Role Phone Nany Antonio MD Primary Care Provider Erlin Cohn Unavailable [phone] Allergies Allergen (clinical drug ingredient) Drug/Non Drug [...] Status Risk Notes Problem Acquired hallux valgus (54981835) Hallux valgus (acquired), left foot (M20.12) Active confirmed Problem Localized, primary osteoarthritis of the ankle and/or foot (361837435) Primary osteoarthrit is, left ankle and foot (M19.072) Active confirmed Problem Acquired hallux valgus (64999660) Hallux valgus (acquired), right foot (M20.11) Active confirmed Problem Acquired hammer toe of right foot (1397303942223651) Other hammer toe(s) (acquired), right foot (M20.41) Active confirmed Problem Acquired hammer toe of left foot (4417562020453230) Other hammer toe(s) (acquired), left foot (M20.42) Active confirmed Plan Of Treatment Pending Test Test Name Order Date X ray : Foot, left 3V 07/21/2020 X ray : Foot, right 3V 07/21/2020 77160, J0702- INJECT or DRAIN, JOINT/BUR SA 12/21/2021 Insurance Providers Payer Name Payer Address Payer Phone Subscriber Number Group Number Insured Name Patient Relationship to Insured Coverage Start Date Coverage End Date [employer] Medicare Advantage [address] [place] [address] [phone] [id number] Lola Eubanks Self - patient is the insured Medical (General) History Medical History History ICD Code Atrial fibrillation High blood pressure Chicken pox Arthritis Cataracts thyroid Keratoma 701.1 Keratoma 729.5 Pain in Limb 754.61 Flat Foot, Congenital 735.0 Hallux Valgus 110.1 Onychomycosis Surgical History Surgery Date(Month/Year) tonsillectomy 194 appendectomy 1950 section 1965 section 1967 section 1970 hysterectomy 2018 cardiac ablasion - X3 [id number]
--- OUTSIDE RECORDS SUMMARY | 2024-08-26 09:31 | XMS_ITS ---
Author Organization [facility] Address [address] [place] [address] Care Team Providers Care Tool Profiling Machine Set Up Operator Name Role Phone Nany Antonio MD Primary Care Provider Lamin Hand [phone] REASON FOR VISIT screening, hx polyps Problems Problem Type SNOMED Code ICD Code Onset Dates Problem Status W/U Status Risk Notes Problem Diverticular disease of colon (524945274) Diverticulosis of large intestine without perforation or abscess without bleeding (K57.30) Active confirmed Encounters Encounter Location Date Provider Diagnosis [facility] Outpatient [address], [place] [phone] 06/20/2023 Lamin Louise Encounter for scre ening [...] * RYAN FERRERAOB: 5 (78 yo F)Acc No.[id number]:06/20/2023 COLON WITH MAC Patient:?HOSEA FERRERA Provider:?Lamin Louise MD :1945???Age:77 Y???Sex:Female D ate:06/20/2023 [address] [place] [facility], [place] Pcp:Nany Antonio MD Subjective: * Chief Complaints: * ???1. Screening, hx polyps. * Medical History:? Objective: * Vitals:? Assessment: * Assessment: 1.?Encounter for screening c olonoscopy - Z12.11 (Primary)???2.?Colon polyps - K63.5???3.?Diverticulosis of large intestine without perforation or abscess without bleeding - K57.30???4.?Other hemorrhoids - K64.8??? Plan: * Treatment: * Procedure Codes:?84486 COLON OSCOPY AND BIOPSY, Modifiers: PT , [...] MD Date:? 024 Generated for Antelmo vazquez/Ladonna/eTviniciussmitting on:?08/26/2024 09:30 AM EDT
--- OUTSIDE RECORDS SUMMARY | 2024-08-26 09:31 | XMS_ITS ---
Author Organization [facility] Address [address] [place] [address] Care Team Providers Care Research And Development Researcher Name Role Phone Nany Antonio MD Primary Care Provider Lamin Hand [phone] Medications Medication SIG (Take, Route, Fr equency, [...] nausea for 1 days 03/26/2023 Active Sutab 0263-284-242 MG [address] dose the day before and second dose 6 to 8 hours before the colonoscopy with 48 ounces of water with each set of 12 pills Orally Twice a day for 1 day(s) 03/22/2023 Active Encounters Encounter Location Date Provider Diagnosis [facility] [address] [place] [address] 03/18/2023 Lamin Louise Plan Of Treatment Medication [...] for nausea for 1 days 03/26/2023 Sutab 9386-341-073 MG [address] dose the day before and second dose 6 to 8 hours before the colonoscopy with 48 ounces of water with each set of 12 pills Orally Twice a day for 1 day(s) 03/22/2023 Progress Notes * HELENA FERRERAEDOB: 5 (77 yo F)Acc No.[id number]:03/18/2023 Patient:?HOSEA FERRERA :1945???Age:77 Y???Sex:Female Address:[facility] [place] [address] * Refills? Start Suprep Bowel Prep Solution, 1 kit, Orally, 1, Take 12 pills with 1,440ml of water(48 ounces), Twice, 1 days, Refills=0 Start Sutab Tablet, 8787-675-258 MG, Orally, 24, 12 tablets the first [...] true * Date:? Generated for Antelmo vazquez/Ladonna/eTviniciussmitting on:?08/26/2024 09:31 AM EDT
--- OUTSIDE RECORDS SUMMARY | 2024-08-26 09:31 | XMS_ITS | Patient Health Record ---
Author Organization [facility] Address [address] [place] [address] Care Team Providers Care Metal Moulder Name Role Phone Nany Antonio MD Primary Care Provider Lamin Hand Unavailable [phone] Allergies Allergen (clinical drug ingredient) Drug/Non Drug [...] nausea for 1 days 03/26/2023 Active Sutab 2937-373-500 MG [address] fir [address] dose [...] Problem Status W/U Status Risk Notes Problem 551630393 Colon cancer screening (Z12.11) Active confirmed Problem 028806822 History of adenomatous polyp of colon (Z86.010) Active confirmed Problem Diverticular disease of colon (517799884) Diverticulosis of large intestine without perforation or abscess without bleeding (K57.30) Active confirmed Problem 150104479141660 Preprocedural examination (Z01.818) Active confirmed Problem 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) Active confirmed Plan Of Treatment Future Test Test Name Order Date COLONOSCOPY 03/07/2012 COLONOSCOPY 10/10/2022 Insurance Providers Payer Name Payer Address Payer Phone Subscriber Number Group Number Insured Name Patient Relationship to Insured Coverage Start Date Coverage End Date [facility] [address] [place] [address] [id number] HOSEA FERRERA Self - patient is the insured MEDICARE OF [place] [address] [place] [address] [id number] HOSEA FERRERA Self - patient is the insured Medical (General) History Medical History History ICD Code Colonoscopy 03-18-2007-negatie Tubular adenoma removed in 2001 Denies [place],DM,CVA,Lung disease,renal dise ase Hypertension Hypothyroidism Atrial fibrillation-cardiac ablation x 3 at [facility]--last one in 2006--she reports that she still has intermittent atrial fibrillation. She did have some transient atrial fibrillation around the time of her colonoscopy in 2011. Negative screening colonoscopy in 2 Surgical History Surgery Date(Month/Year) x 3 appendectomy Vaginal hysterectomy 2018
== END 2024-08-26 09:00 | disposition home or self-care (01) ==
LOC: HO.MAMMO 08:59
PROVIDERS: PCP Internal Medicine; Visit Provider Internal Medicine
DX: Z12.31 Encounter for screening mammogram for malignant neoplasm of breast (principal)
CPT/HCPCS: 77063; 77067

== ENCOUNTER → 2024-08-26 09:15 | Outpatient (BNV) | payer MEDICARE, SELFPAY | PROVIDERS: PCP Internal Medicine; Visit Provider Internal Medicine | DX: Z12.31 Encounter for screening mammogram for malignant neoplasm of breast (principal) | CPT/HCPCS: 77063; 77067 ==

== ENCOUNTER 2024-09-03 12:48 | Outpatient (AMB) | payer MEDICARE, SELFPAY ==
[2024-09-03 12:58] VITALS: BP 132/68; PULSE 57; BMI 24.2
--- NOTE | 2024-09-03 12:58 | A.OFFVIS_ITS ---
Vital Signs 09/03/24 12:58 Height 5 ft 4 in Weight 141 lb 1.533 oz BMI 24.2 BP 132/68 Blood Pressure Location Lt brachial Position Sitting Pulse 57 Pulse Source Pulse Oximeter Intake Visit Reasons: r/s 07/17/24 2 mos followup Allergies omeprazole [From PRILOSEC] Allergy (Unknown, Verified 08/15/24 15:36) NAUSEA quinidine [QUINIDINE] Allergy (Unknown, Verified 08/15/24 15:36) NAUSEA Medication List - Last Reconciled 09/03/24 by Chandler Hurt MD amlodipine 7.5 mg (1.5 x 5 mg) PO DAILY 90 days apixaban (Eliquis) 5 mg PO BID atenolol 100 mg PO DAILY tfvnyxr-pwcibwkhj-yxcdfg-zinc 1 tab PO DAILY cholecalciferol (vitamin D3) 25 mcg PO DAILY irbesartan-hydrochlorothiazide 300-12.5 mg 1 tab PO DAILY levothyroxine 50 mcg PO DAILY HPI Comments Details: Lola returns for follow up regarding atrial fibrillation and hypertension. In the past, she was having side effects from very high dose of beta-blockers. Was having some skin issues. Then switched to diltiazem. There were some side effects from this as well and then switched to Atenolol. In that regard, she is fine for the most part. Rare palpitations. Blood pressures have been variable and we have been adjusting a lot of medications recently. She has also been sent to Nephrology. Overall, seems stable and it seems that she is taking her blood pressure medications in a staggered fashion. Currently, she is on a regimen of irbesartan with hydrochlorothiazide in the morning, atenolol at noon, and amlodipine in the evening. No other complaints like exertional angina. Exercise The patient reports engaging in daily activities, with encouragement to observe for any exertional symptoms. She would like to avoid stress tests due to discomfort with the procedure. No specific exercise regimens are documented, but routine walking outside is suggested for monitoring symptom occurrence. [facility] Medical History Asymptomatic bacteriuria Annual physical exam Skin rash Essential hypertension Paroxysmal atrial fibrillation Internal hemorrhoid Tubular adenoma Hypothyroidism HTN (hypertension) Surgical History History of Hx of hysterectomy Hx of appendectomy H/O colonoscopy Hx of arthroscopic knee surgery Status post endovenous radiofrequency ablation (RFA) of saphenous vein History of radiofrequency ablation (RFA) procedure for cardiac arrhythmia Family History Mother No problems noted. Father No problems noted. Daughter No problems noted. Son No problems noted. Son No problems noted. Social History Housing: House Alcohol intake: never Patient Tobacco Use Status: Never used Tobacco e-Cigarette/Vaping Use: Never Used Current occupational status: retired Review of Systems Const Denies weakness ENT Denies dizziness Card Denies chest pain, Denies chest pain with activity, Denies syncope, Denies rapid heart rate, Denies pedal edema, Denies edema, Denies leg edema, Denies lightheadedness, Denies palpitations, Denies dyspnea, Denies dyspnea on exertion and Denies orthopnea Resp Denies cough, Denies dyspnea and Denies dyspnea on exertion GI Denies hematochezia and Denies change in stool character Musc Denies abnormal gait, Denies muscle cramps, Denies muscle weakness, Denies numbness, Denies radiating pain into limb and Denies tingling Neuro Denies abnormal gait, Denies dizziness, Denies syncope, Denies numbness, Denies tingling and Denies weakness Endo Denies palpitations Physical Exam Vital Signs: Last Vital Signs Pulse 57 09/03/24 12:58 BP 132/68 09/03/24 12:58 BMI result Body Mass Index 24.2 Const General: comfortable and no acute distress Orientation/consciousness: patient oriented x3 HEENT Other: Unremarkable Head: Yes normal to inspection Neck Neck: Yes normal visual inspection Chest Chest palpation & inspection: normal inspection of the chest Resp Auscultation: clear to auscultation bilaterally Cardio Palpation: normal PMI Heart sounds: S1 normal heart sound present, S2 normal heart sound present, no gallops, no murmurs and no rubs GI Palpation (GI): Soft to palpation Back/Spine/Pelvis Other: unremarkable Skin General skin exam: no rashes or lesions noted Neuro General: patient oriented x3 Extrem General: Yes normal to inspection Psych Mental Status: mental status grossly normal Assessment & Plan Assessment & Plan (1) Paroxysmal atrial fibrillation: Code(s): I48.0 - Paroxysmal atrial fibrillation Category: Medical Plan: Continue Atenolol. Continue anticoagulation. (2) Essential hypertension: Comment: Managed by cardiology and nephrology Code(s): I10 - Essential (primary) hypertension Category: Medical Plan: Currently taking irbesartan/hydrochlorothiazide in the morning; atenolol at noon and amlodipine in the evening. Blood pressure seems fairly stable. She is also concurrently seeing Nephrology. May get a 24 hour blood pressure monitor. Holding further changes for now. In the past, there was also difference in blood pressure between the upper extremities and hence could have some vascular disease. With regard to the basal inferior wall motion abnormality on echocardiogram, reviewed the images. Appearance somewhat similar in the previous study as well as the current study. Not clear if it is a true finding or artifactual. She has absolutely no angina. We will follow clinically. Plan Discussion Notes I discussed with the patient the current management and treatment options regarding her hypertension, emphasizing the significance of maintaining blood pressure levels close to the target of less than 130 mmHg. The decision to remain on the adjusted medication schedule was agreed upon, potentially increasing Amlodipine dosage if blood pressure readings become suboptimal. We reviewed the patient's history of atrial fibrillation and considered the relevance of past associated symptoms, as well as current management strategies. The option of undergoing a stress test was discussed as a screening measure for coronary artery disease; however, given the absence of critical symptoms and per her preference, it was not pursued. The patient expressed discomfort with stress tests, so close observation and monitoring for symptoms were advised instead. I recommended follow-up every six months, with alternating scheduled visits with Nephrology to ensure comprehensive care coordination. The patient provided verbal understanding and agreement with the current management and future plans. Also discussed with significant other. Patient was informed and verbally consented to the use of an ambient scribe for clinic note documentation during this visit. Total time spent including review of data, counseling, documentation, co ordination of care-31 minutes. Patient Instructions: - Continue your blood pressure medication schedule: irbesartan with hydrochlorot hiazide in the morning, atenolol at noon, and amlodipine at night. - Monitor your blood pressure daily and keep a record of your readings. - If your blood pressure readings exceed 130 mmHg often, let us know. - Observe for any chest discomfort or angina signs and inform us immediately if they occur. - Engage in routine activities but note any new symptoms related to exercise. - Plan to visit every six months for blood pressure management and regular check-ups. Coding Level of Care Code Est Pt Level 4 (65562) Complex EM visit Add On G2211 Diagnoses Paroxysmal atrial fibrillation I48.0 Essential hypertension I10
--- OUTSIDE RECORDS SUMMARY | 2024-09-03 14:03 | XMS_ITS | Patient Health Record ---
Author Organization [facility] Nick Address [address] [place] [address] Care Team Providers Care Environmental Services Technician Name Role Phone Nany Antonio MD Primary Care Provider Erlin Cohn Unavailable [phone] Allergies Allergen (clinical drug ingredient) Drug/Non Drug [...] Status Risk Notes Problem Acquired hallux valgus (47310303) Hallux valgus (acquired), left foot (M20.12) Active confirmed Problem Localized, primary osteoarthritis of the ankle and/or foot (210381176) Primary osteoarthrit is, left ankle and foot (M19.072) Active confirmed Problem Acquired hallux valgus (38236745) Hallux valgus (acquired), right foot (M20.11) Active confirmed Problem Acquired hammer toe of right foot (3958354112555817) Other hammer toe(s) (acquired), right foot (M20.41) Active confirmed Problem Acquired hammer toe of left foot (1204417725798532) Other hammer toe(s) (acquired), left foot (M20.42) Active confirmed Plan Of Treatment Pending Test Test Name Order Date X ray : Foot, left 3V 07/21/2020 X ray : Foot, right 3V 07/21/2020 02298, J0702- INJECT or DRAIN, JOINT/BUR SA 12/21/2021 Insurance Providers Payer Name Payer Address Payer Phone Subscriber Number Group Number Insured Name Patient Relationship to Insured Coverage Start Date Coverage End Date [employer]age [address] [place] [address] [id number] Lola Eubanks Self - patient is the insured Medical (General) History Medical History History ICD Code Atrial fibrillation High blood pressure Chicken pox Arthritis Cataracts thyroid Keratoma 701.1 Keratoma 729.5 Pain in Limb 754.61 Flat Foot, Congenital 735.0 Hallux Valgus 110.1 Onychomycosis Surgical History Surgery Date(Month/Year) tonsillectomy 194 appendectomy 1950 section 1965 section 1967 section 1970 hysterectomy 2018 cardiac ablasion - X3 [id number]
== END 2024-09-03 13:12 | disposition home or self-care (01) ==
LOC: HO.HCS 12:49
PROVIDERS: PCP Internal Medicine; Visit Provider Internal Medicine
DX: I48.0 Paroxysmal atrial fibrillation (principal); I10 Essential (primary) hypertension
CPT/HCPCS: 99214; G2211

== ENCOUNTER → 2024-09-03 12:48 | Outpatient (BNVA) | payer MEDICARE, SELFPAY | PROVIDERS: PCP Internal Medicine; Visit Provider Internal Medicine | DX: I48.0 Paroxysmal atrial fibrillation (principal); I10 Essential (primary) hypertension | CPT/HCPCS: 99212 ==

== ENCOUNTER 2025-03-05 13:17 | Outpatient (AMB) | payer MEDICARE, SELFPAY ==
[2025-03-05 13:29] VITALS: BP 140/78; PULSE 59; BMI 25.0
--- NOTE | 2025-03-05 13:29 | MHC.OFFVIS ---
Vital Signs 03/05/25 13:29 Height 5 ft 4 in Weight 145 lb 8.081 oz BMI 25.0 BP 140/78 H Blood Pressure Location Lt brachial Position Sitting Pulse 59 Pulse Source Monitor Intake Visit Reasons: 6 mth f/up Allergies omeprazole (From PRILOSEC) Allergy (Unknown, Verified 08/15/24 15:36) NAUSEA quinidine (QUINIDINE) Allergy (Unknown, Verified 08/15/24 15:36) NAUSEA Medication List - Last Reconciled 03/05/25 by Chandler Hurt MD amlodipine 7.5 mg (1.5 x 5 mg) PO DAILY 90 days apixaban (Eliquis) 5 mg PO BID atenolol 100 mg PO DAILY qwmsjee-vcsjhkcyg-veerph-zinc 1 tab PO DAILY cholecalciferol (vitamin D3) 25 mcg PO DAILY cyanocobalamin (vitamin B-12) 1,000 mcg PO DAILY irbesartan-hydrochlorothiazide 300-12.5 mg 1 tab PO DAILY levothyroxine 50 mcg PO DAILY HPI Comments Details: Lola returns for follow up regarding atrial fibrillation and hypertension. In the past, she was having side effects from very high dose of beta-blockers. Was having some skin issues. Then switched to diltiazem. There were some side effects from this as well and then switched to Atenolol. She has not had any recent issues with atrial fibrillation. Rare palpitations. Blood pressures have been variable and we have been adjusting a lot of medications recently. She has also been sent to Nephrology. Currently, she is on combination of irbesartan/hydrochlorothiazide, atenolol, amlodipine. She seems to be having stable blood pressure. She is taking her blood pressure medications in a staggered fashion- Irbesartan/Hydrochlorothiazide in the morning, atenolol at noon, and amlodipine in the evening. No other complaints like exertional angina. [facility] Medical History Asymptomatic bacteriuria Annual physical exam Skin rash Essential hypertension Paroxysmal atrial fibrillation Internal hemorrhoid Tubular adenoma Hypothyroidism HTN (hypertension) Surgical History History of Hx of hysterectomy Hx of appendectomy H/O colonoscopy Hx of arthroscopic knee surgery Status post endovenous radiofrequency ablation (RFA) of saphenous vein History of radiofrequency ablation (RFA) procedure for cardiac arrhythmia Family History Mother No problems noted. Father No problems noted. Daughter No problems noted. Son No problems noted. Son No problems noted. Social History Housing: House Alcohol intake: never Patient Tobacco Use Status: Never used Tobacco e-Cigarette/Vaping Use: Never Used Current occupational status: retired Review of Systems Const Denies weakness ENT Denies dizziness Card Denies chest pain, Denies chest pain with activity, Denies syncope, Denies rapid heart rate, Denies pedal edema, Denies edema, Denies leg edema, Denies lightheadedness, Denies palpitations, Denies dyspnea, Denies dyspnea on exertion and Denies orthopnea Resp Denies cough, Denies dyspnea and Denies dyspnea on exertion GI Denies hematochezia and Denies change in stool character Musc Denies abnormal gait, Denies muscle cramps, Denies muscle weakness, Denies numbness, Denies radiating pain into limb and Denies tingling Neuro Denies abnormal gait, Denies dizziness, Denies syncope, Denies numbness, Denies tingling and Denies weakness Endo Denies palpitations Physical Exam Vital Signs: Last Vital Signs Pulse 59 03/05/25 13:29 BP 140/78 H 03/05/25 13:29 BMI result Body Mass Index 25.0 Const General: comfortable and no acute distress Orientation/consciousness: patient oriented x3 HEENT Other: Unremarkable Head: Yes normal to inspection Neck Neck: Yes normal visual inspection Chest Chest palpation & inspection: normal inspection of the chest Resp Auscultation: clear to auscultation bilaterally Cardio Palpation: normal PMI Heart sounds: S1 normal heart sound present, S2 normal heart sound present, no gallops, no murmurs and no rubs GI Palpation (GI): Soft to palpation Back/Spine/Pelvis Other: unremarkable Skin General skin exam: no rashes or lesions noted Neuro General: patient oriented x3 Extrem General: Yes normal to inspection Psych Mental Status: mental status grossly normal Office Procedures EKG Details: EKG with sinus bradycardia at 59/Min; right bundle-branch [place] [address]-Xydijidlkglcoevjp, Complete Assessment & Plan Assessment & Plan (1) Paroxysmal atrial fibrillation: Code(s): I48.0 - Paroxysmal atrial fibrillation Category: Medical Plan: Continue Atenolol. Continue anticoagulation. (2) Essential hypertension: Code(s): I10 - Essential (primary) hypertension Category: Medical Plan: Currently taking irbesartan/hydrochlorothiazide in the morning; Atenolol at noon and Amlodipine in the evening. Blood pressure seems fairly stable. With regard to the basal inferior wall motion abnormality on echocardiogram, reviewed the images. Appearance somewhat similar in the previous study as well as the current study. Not clear if it is a true finding or artifactual. She has absolutely no angina. We will follow clinically. Plan Discussion Notes During the visit, we discussed the patient's current management of hypertension and atrial fibrillation. The patient is satisfied with her current medication regimen and reports good control of her blood pressure at home. We reviewed her history of atrial fibrillation and the effectiveness of past ablations in reducing episode frequency. The patient will continue her current medications, including Eliquis for anticoagulation, and will follow up in one year unless issues arise. Patient was informed and verbally consented to the use of an ambient scribe for clinic note documentation during this visit. Patient Instructions: - Continue taking your medications as prescribed: irbesartan and hydrochlorothiazide in the morning, atenolol around noon, and amlodipine in the evening. - Monitor your blood pressure at home regularly and report any significant changes. - Follow up in one year or sooner if you experience any new symptoms or issues. Coding Level of Care Code Est Pt Level 4 (43219) Complex EM visit Add On G2211 Diagnoses Paroxysmal atrial fibrillation I48.0 Essential hypertension I10 CPT Codes EKG - CPT: 06618-Fmsnradatcpzytecs, Complete ([id number])
--- OUTSIDE RECORDS SUMMARY | 2025-03-05 16:17 | XMS_ITS | Patient Health Record ---
Author Organization [facility] Address [address] [place] [address] Care Team Providers Care Wheel Polisher Name Role Phone Nany Antonio MD Primary Care Provider Lamin Hand Unavailable [phone] Allergies Allergen (clinical drug ingredient) Drug/Non Drug Allergy documented on EMR Reaction Allergy Type Onset Date Status Prilosec Unknown Drug Allergy Active quinidine Quinidine Sulfate Unknown Drug Allergy Active Reason For Referral No Information Medications Medication SIG (Take, Route, Frequency, Duration) Notes Start Date End Date Status dilTIAZem HCl ER Coated Beads 180 MG Oral; Duration: 90 Active Eliquis 5 MG Oral; Duration: 90 Active Irbesartan-hydroCHLOROthiaz jose carlos 300-12.5 MG Oral; Duration: 90 Active Ondansetron 4 MG 1 tablet on the tong ue and allow to dissolve Orally Take 30 to 60 minutes before starting the colonoscopy prep, and then repeat in 4 to 6 hours. Then use every 6 hours as needed for nausea; Duration: 1 days 03/26/2023 Active Sutab 3848-322-832 MG [address] dose the day before and second dose 6 to 8 hours before the colonoscopy with 48 ounces of water with each set of 12 pills Orally Twice a day; Duration: 1 day(s) 03/22/2023 Active Levothyroxine Sodium 50 MCG 1 tablet in the morning on an empty stomach Orally Once a day Active Vitamin D3 25 MCG (1000 UT) 1 tablet Ora lly Once a day; Duration: 30 day(s) Active Problems Problem Type SNOMED Code ICD Code Onset Dates Problem Status W/U Status Risk Notes Problem Colon cancer screening (064953514) Colon cancer screening (Z12.11) Active confirmed Problem History of adenomatous polyp of colon (976075368) History of adenomatous polyp of colon (Z86.010) Active confirmed Problem Diverticular disease of colon (338339216) Diverticulosis of large intestine without perforation or abscess without bleeding (K57.30) Active confirmed Problem Preprocedural examination (733649960938876) Preprocedural examination (Z01.818) Active confirmed Problem Long-term current use of anticoagulant (953835015) 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) Active confirmed Plan Of Treatment Future Test Test Name Order Date COLONOSCOPY 03/07/2012 COLONOSCOPY 10/10/2022 Insurance Providers Payer Name Payer Address Payer Phone Subscriber Number Group Number Insured Name Patient Relationship to Insured Coverage Start Date Coverage End Date [facility] [address] [place] [phone] [id number] HOSEA FERRERA Self - patient is the insured MEDICARE OF [place] [address] [place] [address] [id number] HOSEA FERRERA Self - patient is the insured Medical (General) History Medical History History ICD Code Colonoscopy 03-18-2007-negatie Tubular adenoma removed in 2001 Denies PR,DM,CVA,Lung disease,renal dise ase Hypertension Hypothyroidism Atrial fibrillation-cardiac ablation x 3 at [facility]--last one in 2006--she reports that she still has intermittent atrial fibrillation. She did have some transient atrial fibrillation around the time of her colonoscopy in 2011. Negative screening colonoscopy in 2 Surgical History Surgery Date(Month/Year) x 3 appendectomy Vaginal hysterectomy 2018
--- OUTSIDE RECORDS SUMMARY | 2025-03-05 16:17 | XMS_ITS | Patient Health Record ---
Author [facility] Address [address] [place] [address] Care Team Providers Care Paleontology Teacher Name Role Phone Nany Antonio MD Primary Care Provider UnavailErlin Leos Unavailable [phone] Allergies Allergen (clinical drug ingredient) Drug/Non Drug [...] End Date Status Levothyroxine Sodium 50 MCG Oral; Duration: 90 Active Irbesartan 300 MG Oral; Duration: 90 Active Toprol XL 100 MG Oral; Duration: 90 Not-Taking Magnesium Active Avapro 150 MG 1 tablet Orally Once a day Not-Taking Calcium Not-Taking amLODIPine Besylate 10 MG Oral; Duration: 90 Not-Taking Vitamin D2 Not-Takin g Vitamin C Not-Taking Calcium + D Active Metoprolol Succinate 150 1 tablet Orally Not-Taking Zinc Not-Taking Eliquis 5 MG as directed Orally Active Pradaxa 150 MG Oral; Duration: 90 Not-Taking Cardizem 360mg Once a day Acti ve medroxyPROGESTERone Acetate 10 MG Oral; Duration: 90 Not-Takin g Immunizations Vaccine Route Administration Date Status Comme [...] Status Risk Notes Problem Acquired hallux valgus (13844983) Hallux valgus (acquired), left foot (M20.12) Active confirmed Problem Localized, primary osteoarthritis of the ankle and/or foot (034842323) Primary osteoarthrit is, left ankle and foot (M19.072) Active confirmed Problem Acquired hallux valgus (99340762) Hallux valgus (acquired), right foot (M20.11) Active confirmed Problem Acquired hammer toe of right foot (3634620324924926) Other hammer toe(s) (acquired), right foot (M20.41) Active confirmed Problem Acquired hammer toe of left foot (0944610575844667) Other hammer toe(s) (acquired), left foot (M20.42) Active confirmed Plan Of Treatment Pending Test Test Name Order Date X ray : Foot, left 3V 07/21/2020 X ray : Foot, right 3V 07/21/2020 99056, J0702- INJECT or DRAIN, JOINT/BUR SA 12/21/2021 Insurance Providers Payer Name Payer Address Payer Phone Subscriber Number Group Number Insured Name Patient Relationship to Insured Coverage Start Date Coverage End Date [employer] [place] [employer]age [address] [place] [address] [phone] [id number] Lola Eubanks Self - patient is the insured Medical (General) History Medical History History ICD Code Atrial fibrillation High blood pressure Chicken pox Arthritis Cataracts thyroid Keratoma 701.1 Keratoma 729.5 Pain in Limb 754.61 Flat Foot, Congenital 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
--- OUTSIDE RECORDS SUMMARY | 2025-03-05 16:17 | XMS_ITS | Clinical Summary ---
Author Organization [facility] Address [address] [place] [address] Phone Care Team Providers Care Protective Signal Operations Supervisor Name Role Phone EvelynAntonio Primary Care Provider [phone] Allergies Active Allergy Reactions Criticality Noted Date Comments Omeprazole GI Upset 10/10/2006 nausea, diarrhea Quinidine Other (See Comments) 07/24/2005 neurologic symptoms Medications No known medications Active Problems Problem Noted Date Diagnosed Date Vaginal bleeding 04/11/2018 Overview (04/11/2018): S/P vaginal hysterectomy October 25, 2016 for benign indication, benign pathology. Assessment & Plan (04/11/2018 9:22 AM EST): S/P hysterectomy No lesions or bleeding on examination May be secondary to irritation or trauma with intercourse exacerbated by anticoagulation Reassured Social History Tobacco Use Types Packs/Day Years Used Date Smoking Tobacco: Former Smokeless Tobacco: Never Alcohol Use Standard Drinks/Week Comments No 0 (1 standard drink = 0.6 oz pur e alcohol) Education Answer Date Recorded Are you interested in more education? Not on mak e 08/31/2022 Are you concerned about learning? Not on file 08/31/2022 No 08/31/2022 No 08/31/2022 Digital Access Answer Date Recorded No 10/02/2022 No 10/02/2022 No 10/02/2022 Reliable internet access at home? Not on file 10/02/2022 Device with a working camera? Not on file Comments Unknown Sex and Gender Information Value Date Recorded Sex Assigned at Not on file Legal Sex Female 7:15 PM EST Gender Identity Not on file Sexual Orientation Not on file Last Filed Vital Signs Vital Sign Reading Time Taken Comments Blood Pressure 128/78 04/11/2018 7:56 AM EST Pulse 68 04/07/2013 8:52 AM EST Temperature - - Respiratory Rate - - Oxygen Saturation - - Inhaled Oxygen Concentration - - Weight 78.5 kg (173 lb) 04/11/2018 7:56 AM EST Height - - Body Mass Index - - Plan of Treatment Health Maintenance Due Date Last Done Comments LIPID PANEL 1944 DEPRESSION SCREENING 1956 SMOKING Hx and SMOKELESS TOBACCO SCREENING 1957 OSTEOPOROSIS SCREENING INITIAL (ONE-TIME) 2009 PNEUMOCOCCAL VACCINES (50+ years) (2 of 2 - PPSV23) 04/26/2017 04/26/2016 RSV VACCINE (1 - 1-dose 75+ series) 09/08/2019 INFLUENZA VACCINE (#1) 2024 , 02/11/2019, 01/18/2018, Additional history exists COVID-19 VACCINE (3 - 2024- season) 2025 07/01/2020, 06/03/2020 Adult Td,Tdap Booster 02/03/2026 02/04/2016 ZOSTER VACCINES Completed 01/06/2018, 06/22/2017 HEPATITIS A VACCINES Aged Out No long er eligible based on patient's age to complete this topic HIB VACCINES Aged Out No longer eligi ble based on patient's age to complete this topic MENINGOCOCCAL VACCINES (ACWY) Aged Out No longer eligible based on patient's age to complete this topic MENINGOCOCCAL VACCINES (B) Aged Out N o longer eligible based on patient's age to complete this topic Medical Devices Not on file Insurance [employer] POS PPO REPLACEMENT [employer] PPO REPLACEMENT [employer] [employer] PPO [employer]PLACEMENT [employer] [employer] PPO REPLACEMENT [employer] [place] [employer] PPO REPLACEMENT [employer] [place] [employer] PPO REPLACEMENT [employer] [place] [employer] PPO REPLACEMENT [employer] PPO REPLACEMENT [employer] PPO REPLACEMENT Care Teams Protective Signal Operations Supervisor Relationship Specialty Start Date End Date Antonio Rivas DO [address] [place] [address] PCP - General 09/10/14 Additional Source Comments The information contained in this document represents components of the legal health record. It is not the complete legal health record.[facility]
== END 2025-03-05 13:55 | disposition home or self-care (01) ==
LOC: HO.HCS 13:18
PROVIDERS: PCP Internal Medicine; Visit Provider Internal Medicine
DX: I48.0 Paroxysmal atrial fibrillation (principal); I10 Essential (primary) hypertension
CPT/HCPCS: 93010; 99214; G2211

== ENCOUNTER → 2025-03-05 13:17 | Outpatient (BNVA) | payer MEDICARE, SELFPAY | PROVIDERS: PCP Internal Medicine; Visit Provider Internal Medicine | DX: I48.0 Paroxysmal atrial fibrillation (principal); I10 Essential (primary) hypertension; R21 Rash and other nonspecific skin eruption; R00.1 Bradycardia, unspecified; I45.10 Unspecified right bundle-branch block | CPT/HCPCS: 93005; 99212 ==